=== PATIENT | male | born 1935 | race Caucasian/White ===

== ENCOUNTER 2020-03-09 14:39 | Inpatient (IN) | payer MEDICARE, BC ==
[~2020-03-09] VITALS: Ht 177.8 cm; Wt 83.9 kg
[2020-03-09] MEDS ORDERED: PEPCID AC20 MG PO (14:50)
[2020-03-09] MEDS ORDERED: BAYER CHEWABLE81 MG PO (14:50)
[2020-03-09] MEDS ORDERED: PLAVIX75 MG PO (14:50)
[2020-03-09] MEDS ORDERED: COZAAR50 MG PO (14:50)
[2020-03-09] MEDS ORDERED: NITROSTAT0.4 MG SL (14:51)
[2020-03-09] MEDS ORDERED: FLOMAX0.4 MG PO (14:51)
[2020-03-09] MEDS ORDERED: METOPROLOL TART50 MG PO (14:51)
[2020-03-09] MEDS ORDERED: METFORMIN HCL500 M1 PO (14:51)
[2020-03-09] MEDS ORDERED: RESTORIL15 MG PO (14:52)
[2020-03-09] MEDS ORDERED: COUMADIN4 MG PO (14:53)
[2020-03-09 15:17] LABS: BASOPHILS 0.3 % (0-2); EOSINOPHILS 0.8 % (0-7); HEMATOCRIT 31.5 % (42.0-54.0); HEMOGLOBIN 9.4 g/dL (13.5-17.5); IMMATURE GRANULOCYTES 0.3 % (0-5); LYMPHOCYTES 16.3 % (15-50); MCH 23.5 pg (26.0-34.0); MCHC 29.8 g/dL (31.0-37.0); MCV 78.8 fL (80.0-100.0); MEAN PLATELET VOLUME 9.5 fL (7.4-10.4); MONOCYTES 10.7 % (2-11); NEUTROPHILS 71.6 % (40-80); PLATELET COUNT 261 10x3/uL (130-400); RDW 16.1 % (11.5-14.5); WBC 6.6 10x3/uL (4.8-10.8)
[2020-03-09 15:25] LABS: APTT 35.4 SECONDS (22.8-39.4); INR 1.81 (0.85-1.17); PROTIME 20.7 SECONDS (11.6-15.0)
[2020-03-09 15:26] LABS: CALC OSMOLALITY 276 mosm/kg (275-300); CALCIUM 8.4 mg/dL (8.5-10.1); CARBON DIOXIDE 25.5 mmol/L (21.0-32.0); CHLORIDE - SERUM 104 mmol/L (98-107); CREATININE - SERUM 1.2 mg/dL (0.6-1.3); GLUCOSE 125 mg/dL (74-106); POTASSIUM - SERUM 4.3 mmol/L (3.5-5.1); SODIUM 137 mmol/L (136-145); UREA NITROGEN 18 mg/dL (7-18); eGFR NON AFRICAN AMERICAN 61 mL/min (90-120)
[2020-03-09 15:41] LABS: ALBUMIN 3.5 g/dL (3.4-5.0); ALKALINE PHOSPHATASE 58 U/L (30-120); ALT (SGPT) 28 U/L (10-68); BILIRUBIN - TOTAL 0.35 mg/dL (0.2-1.3); CKMB 3.1 U/L (0.0-3.6); CREATINE KINASE 80 UL (21-232)
[2020-03-09 15:43] LABS: TROPONIN-I < 0.017 ng/mL (0.000-0.060)
--- NOTE | 2020-03-09 16:02 | NUR ---
PT LAYING IN BED NO DISTRESS NOTED. RESPIRATIONS ARE EVEN AND UNLABORED. WILL CONTINUE TO MONITOR.
--- NOTE | 2020-03-09 16:30 | NUR ---
PT PROVIDED WITH SANDWICH TRAY AT THIS TIME.
[2020-03-09 17:15] VITALS: BP 166/78
[2020-03-09 18:18] LABS: CKMB 2.6 U/L (0.0-3.6); CREATINE KINASE 85 UL (21-232)
[2020-03-09 18:20] LABS: TROPONIN-I < 0.017 ng/mL (0.000-0.060)
[2020-03-09 20:00] VITALS: BP 116/59
--- NOTE | 2020-03-09 20:10 | NUR ---
PT TO ROOM 2121 VIA WHEELCHAIR ACCOMPANIED BY HOSPITAL STAFF.
--- NOTE | 2020-03-09 23:00 | NUR ---
PT DENIES ANY KIND OF PAIN, INCLUDING CHEST PAIN, DENIES BLURRY VISION, REPORTS PRESENTING TO ER FOR "OVER-MEDICATED ON CURRENT MEDICATIONS." ORTHOSTATIC VITALS: LYING 116/59, 68 HR; SITTING 148/60, 72 HR; STANDING 162/68, 81 HR.
[2020-03-10 01:25] LABS: CKMB 2.4 U/L (0.0-3.6); CREATINE KINASE 84 UL (21-232); TROPONIN-I 0.022 ng/mL (0.000-0.060)
--- NOTE | 2020-03-10 04:00 | NUR ---
ORTHOSTATIC VITALS: LYIN/64, 66 HR, 97% ON RA SITTIN/68, 81 HR, 97% ON RA STANDIN/72, 84 HR, 96% ON RA
[2020-03-10 05:20] VITALS: BP 116/59; BMI 26.6
[2020-03-10 06:58] LABS: ALBUMIN 3.4 g/dL (3.4-5.0); ALKALINE PHOSPHATASE 54 U/L (30-120); ALT (SGPT) 27 U/L (10-68); BILIRUBIN - TOTAL 0.42 mg/dL (0.2-1.3); CALC OSMOLALITY 276 mosm/kg (275-300); CALCIUM 8.3 mg/dL (8.5-10.1); CARBON DIOXIDE 29.8 mmol/L (21.0-32.0); CHLORIDE - SERUM 104 mmol/L (98-107); CKMB 2.5 U/L (0.0-3.6); CREATINE KINASE 80 UL (21-232); GLUCOSE 124 mg/dL (74-106); POTASSIUM - SERUM 3.9 mmol/L (3.5-5.1); PROTEIN - SERUM 6.9 g/dL (6.4-8.2); SODIUM 137 mmol/L (136-145); TROPONIN-I 0.017 ng/mL (0.000-0.060); UREA NITROGEN 18 mg/dL (7-18); eGFR NON AFRICAN AMERICAN 76 mL/min (90-120)
[2020-03-10 07:11] LABS: BASOPHILS 0.2 % (0-2); EOSINOPHILS 1.4 % (0-7); HEMATOCRIT 31.4 % (42.0-54.0); HEMOGLOBIN 9.4 g/dL (13.5-17.5); IMMATURE GRANULOCYTES 0.2 % (0-5); LYMPHOCYTES 19.3 % (15-50); MCH 23.6 pg (26.0-34.0); MCHC 29.9 g/dL (31.0-37.0); MCV 78.7 fL (80.0-100.0); MEAN PLATELET VOLUME 9.7 fL (7.4-10.4); MONOCYTES 10.9 % (2-11); PLATELET COUNT 267 10x3/uL (130-400); RBC 3.99 10x6/uL (4.20-6.10); RDW 16.1 % (11.5-14.5); WBC 6.4 10x3/uL (4.8-10.8)
--- NOTE | 2020-03-10 07:15 | NUR ---
RECEIVED PT IN BED AAOX4 RESP UNLABORED SKIN W/D COLOR WNL DENIES ANY NEEDS OR PAIN AT THIS TIME
[2020-03-10 09:32] VITALS: BP 176/68
--- NOTE | 2020-03-10 10:06 | NUR ---
PT REFUSES SCDs AT THHIS TIME
[2020-03-10 13:01] VITALS: Ht 177.8 cm; Wt 83.9 kg
[2020-03-10 13:40] VITALS: BP 189/80
--- NOTE | 2020-03-10 13:43 | NUR ---
Rehab Note- Acute Inpatient Rehab prescreen order received. The patient has a pending a PT Eval, will follow at this time for functional mobility. Thank you for this referral! Bertha Ha RN Clinical Liaison, [facility] Rehab
--- NOTE | 2020-03-10 19:45 | NUR ---
RECEIVED REPORT ON PATIENT. PATIENT UP, ALERT AND ORIENTED. 20 GUAGE IV IN RIGHT HAND. ASSESSED FOR INFILTRATION, BLOOD NOTED ON SKIN. IV WAS PATENT AND WAS NOT INFILTRATED. BREATH SOUNDS EQUAL BILATERALLY AND UNLABORED ON ROOM AIR.
[2020-03-10 21:32] VITALS: BP 161/70
[2020-03-10 21:35] LABS: BILIRUBIN NEGATIVE (NEGATIVE); GLUCOSE NEGATIVE (NEGATIVE); KETONE NEGATIVE (NEGATIVE); NITRITE NEGATIVE (NEGATIVE); SPECIFIC GRAVITY 1.015 (1.005-1.020); UROBILINOGEN NORMAL (NORMAL)
[2020-03-10 21:45] VITALS: BP 184/63
--- NOTE | 2020-03-10 22:00 | NUR ---
URINE AND STOOL SPECIMINE COLLECTED AND TAKEN TO LAB.
--- NOTE | 2020-03-11 02:36 | NUR ---
I have reviewed this patient and I concur with the Shift Assessment completed by the Licensed Practical Nurse today this shift.
[2020-03-11 04:00] VITALS: BP 129/66
[2020-03-11 06:02] LABS: BASOPHILS 0.3 % (0-2); EOSINOPHILS 1.6 % (0-7); HEMATOCRIT 33.4 % (42.0-54.0); HEMOGLOBIN 10.1 g/dL (13.5-17.5); IMMATURE GRANULOCYTES 0.3 % (0-5); LYMPHOCYTES 17.8 % (15-50); MCH 23.7 pg (26.0-34.0); MCHC 30.2 g/dL (31.0-37.0); MCV 78.2 fL (80.0-100.0); MEAN PLATELET VOLUME 9.5 fL (7.4-10.4); MONOCYTES 11.6 % (2-11); NEUTROPHILS 68.4 % (40-80); PLATELET COUNT 305 10x3/uL (130-400); RBC 4.27 10x6/uL (4.20-6.10); RDW 16.3 % (11.5-14.5); WBC 6.8 10x3/uL (4.8-10.8)
[2020-03-11 06:17] LABS: INR 1.52 (0.85-1.17); PROTIME 18.1 SECONDS (11.6-15.0)
[2020-03-11 06:33] LABS: % SATURATION 6 % (15-55); IRON 26 ug/dl (35-150); TOTAL IRON BIND CAPACITY 385 ug/dl (260-445); UNSAT IRON BIND CAPACITY 359 ug/dl (150-375)
[2020-03-11 06:40] LABS: ANION GAP 13.8 mmol/L (8-16); CALCIUM 8.9 mg/dL (8.5-10.1); CARBON DIOXIDE 25.3 mmol/L (21.0-32.0); CREATININE - SERUM 1.1 mg/dL (0.6-1.3); POTASSIUM - SERUM 4.1 mmol/L (3.5-5.1)
--- NOTE | 2020-03-11 07:00 | NUR ---
RECEIVED REPORT. ASSUMED CARE OF PATIENT. RESTING IN BED, EASILY AROUSED. BEDSIDE SHIFT REPORT COMPLETED, WHITE BOARD UPDATED. PATIENT MADE AWARE OF NPO STATUS UNTIL SEEN BY CARDIOLOGY. PATIENT DENIES ANY CHEST PAIN OR DISCOMFORT. NO DISTRESS. CALL LIGHT WITHIN REACH.
[2020-03-11 09:28] VITALS: BP 140/92
--- NOTE | 2020-03-11 10:37 | NUR ---
Rehab Note- REviewed medical record, PT Aidee stated that no skilled need for physical therapy. Thank you for this referral! Bertha Ha RN Clinical Liaison, [facility] Rehab
--- NOTE | 2020-03-11 11:19 | NUR ---
FSBS 194. 2 UNITS HUMULIN ADMINISTERED PER SLIDING SCALE.
[2020-03-11 12:09] VITALS: BP 148/60
[2020-03-11 15:35] VITALS: BP 142/61
--- NOTE | 2020-03-11 16:41 | NUR ---
FSBS 157. 2 UNITS HUMULIN ADMINISTERED PER SLIDING SCALE.
--- NOTE | 2020-03-11 19:45 | NUR ---
PATIENT IS RESTING COMFORTABLY IN BED. PATEINT IS ALERT AND ORIENTED. HE TOLD ME WHEN I WENT INTO ASSESS HIM, THAT HE WOULD REFUSE TO TAKE THE BETAPACE TONIGHT. HE SAID HE HAD A REACTION TO IT TODAY. HE SAID HE WOULD TALK TO THE CYBER OPERATOR IN THE MORNING.
[2020-03-11 22:26] VITALS: BP 151/56
[2020-03-12 01:47] VITALS: BP 145/54
--- NOTE | 2020-03-12 04:51 | NUR ---
PATIENT IS SLEEPING. HE REFUSED HIS BETAPACE. HE SAID HE WILL TALK TO THE SENSITIZED PAPER TESTER IN AM ABOUT BETAPACE.
[2020-03-12 06:50] LABS: BASOPHILS 0.4 % (0-2); EOSINOPHILS 2.6 % (0-7); HEMOGLOBIN 9.5 g/dL (13.5-17.5); IMMATURE GRANULOCYTES 0.2 % (0-5); MCH 23.9 pg (26.0-34.0); MCHC 30.6 g/dL (31.0-37.0); MCV 78.1 fL (80.0-100.0); MEAN PLATELET VOLUME 9.4 fL (7.4-10.4); MONOCYTES 12.4 % (2-11); NEUTROPHILS 59.4 % (40-80); PLATELET COUNT 263 10x3/uL (130-400); RBC 3.97 10x6/uL (4.20-6.10); RDW 16.2 % (11.5-14.5); WBC 5.4 10x3/uL (4.8-10.8)
[2020-03-12 06:54] VITALS: BP 125/67
[2020-03-12 07:02] LABS: CALC OSMOLALITY 277 mosm/kg (275-300); CALCIUM 8.3 mg/dL (8.5-10.1); CARBON DIOXIDE 25.9 mmol/L (21.0-32.0); CHLORIDE - SERUM 104 mmol/L (98-107); CREATININE - SERUM 0.9 mg/dL (0.6-1.3); GLUCOSE 120 mg/dL (74-106); POTASSIUM - SERUM 4.1 mmol/L (3.5-5.1); SODIUM 138 mmol/L (136-145); UREA NITROGEN 15 mg/dL (7-18); eGFR NON AFRICAN AMERICAN 85 mL/min (90-120)
[2020-03-12 07:39] LABS: INR 1.51 (0.85-1.17)
[2020-03-12 10:14] VITALS: BP 176/71
--- NOTE | 2020-03-12 12:04 | NUR ---
C/O BLUURED VISION AND ANXIETY. B/P 142/54. THINKS IT MIGHT HAVE BEEN THE BETAPACE OR RESTORIL ALEJANDRO TRINIDAD NOTIFIED.
[2020-03-12] MEDS ORDERED: RESTORIL15 MG PO (12:52)
--- NOTE | 2020-03-12 13:30 | NUR ---
Nutrition Follow-up: Good appetite. Denies N/V/C/D. Noted plans to d/c today. Diet: Cardiac PO intake: 100% x 4 meals Wt: 185# (03/10) Last BM: 03/11 Labs noted: Glu 120, Ca 8.3 Meds noted: Humulin, Coumadin, Pepcid, electrolyte protocol -Change to cardiac carb consistent diet. -RD following.
--- NOTE | 2020-03-12 14:40 | NUR ---
INSISTS ON SEEING DR. SUMMERS OR ALEJANDRO PRIOR TO DC. DR. SUMMERS NOTIFIED AND RETURNS TO ROOM AND AND ANSWERS ANY QUESTIONS HE HAS IN REGAURDS TO BLURRED VISION AND INTERMITTEN DIZZINESS.
--- NOTE | 2020-03-12 14:49 | MORECARE ---
CASE MANAGEMENT DISCHARGE SUMMARY PATIENT: ELIUD RIVERA UNIT: [id number] ADM DATE: 03/10/20 AGE: 84 : 36 SEX: M ROOM/BED: D.2121 AUTHOR: CISCO LEDEZMA PHYSICIAN: REFERRING PHYSICIAN: JOSSELYN ALEJANDRO MD DATE OF SERVICE: 03/12/20 Discharge Plan Patient Name: ELIUD RIVERA Facility: [facility]:[place] : 1935 Planned Disposition: Anticipated Discharge Date: Discharge Date: Expected LOS: Initial Reviewer: [email or web address] Initial Review Date: 03/09/2020 Generated: 03/12/20 3:48 pm DCPIA - Discharge Planning Initial Assessment Updated by [email or web address]: Radha Avalos on 03/12/20 2:45 pm * Is the patient Alert and Oriented? Yes * How many steps to enter\exit or inside your home? 0/0 * PCP JOCE * Pharmacy [facility] * Preadmission Environment Home Alone * ADLs Independent * Equipment Other * List name and contact numbers for known caregivers / representatives who currently or will assist patient after discharge: KENYON [phone] * Verbal permission to speak to the caregivers and representatives has been obtained from the patient. Yes * Community resources currently utilized None * Additional services required to return to the preadmission environment? Yes * Can the patient safely return to the preadmission environment? Yes * Has this patient been hospitalized within the prior 30 days at any hospital? Yes External Providers External Provider: [facility] Next Contact Date: Service Request Date: Service Type: Resolution: Reviewer: Comments: Patient Name: ELIUD RIVERA Page [phone] at 1449 All edits/amendments must be made on the electronic document DICTATION DATE: 03/12/201447 MEDICAL CARE ADMINISTRATOR: MARY 03/12/201447 RPT#: [id number] DC DATE: STATUS: ADM IN [facility] [address] [place] [address] END OF REPORT
--- NOTE | 2020-03-12 14:49 | EC ---
PATIENT:ELIUD RIVERA DATE OF SERVICE: 03/10/20 SEX: M MEDICAL RECORD: [id number] DATE OF : 37 LOCATION:D.M2 D.212 AGE OF PATIENT: 84 ADMISSION DATE: 03/10/20 REFERRING PHYSICIAN: INTERPRETING PHYSICIAN: MYAH MENDENHALL MD ECHOCARDIOGRAM REPORT ECHO CHARGES 4 ECHO COMPLETE Date: 03/10/20 CLINICAL DIAGNOSIS: DIZZINESS ECHOCARDIOGRAPHIC MEASUREMENTS (adult normal given) AC root (d.<3.7cm) 3.1 cm LV Septum d (<1.2 cm> 2.0 cm Valve Excursion 2.0 cm LV Septum (systole) 2.1 cm Left Atria (s.<4.0cm> 4.0 cm LVPW d(<1.2cm) 1.2 cm RV (d.<2.3cm) 3.0 cm LVPW (sytole) 1.7 cm LV diastole(<5.6CM) 4.9 cm MV E-F(>70mm/sec) cm LV systole 2.6 cm LVOT Diameter 1.8 cm MV exc.(>10mm) cm Est.ejection fraction (50-75%) % DOPPLER: LVIT cm/sec A 59 cm/sec E 83 cm/sec LA cm/sec RVSP 44.6 mmHg LVOT 79 cm/sec AOP1/2T m/s Asc. Ao 117 cm/sec RVOT 64 cm/sec RA cm/sec PA 96 cm/sec AV Gradient Peak 5.5 mmHg AV Mean 3.0 mmHg AV Area 1.8 cm MV Gradient Peak 3.0 mmHg MV Mean 1.2 mmHg MV Area cm COMMENTS: Door Repairer Bus: Carolina CLAROS Landscape Nurseryman: Alyse Mendenhall TAPE# PACS Pericardial Effusion N DATE OF SERVICE: PROCEDURE: Transthoracic echocardiogram. FINDINGS: 1. The left ventricle shows left ventricular hypertrophy with ejection fraction of 50% to 55%. 2. Left atrium is normal size, shape, structure, and function. 3. Aortic valve has a thickened area on the noncoronary cusp, it is difficult to visualize, does not appear to be associated with significant stenosis or ECHOCARDIOGRAM REPORT [id number] ELIUD RIVERA regurgitation and there is still good mobility in that area. 4. Mitral valve has mild mitral regurgitation, normal structure. 5. Tricuspid valve has [id number] tricuspid regurgitation, normal structure with RVSP of 44.6 mmHg. 6. Pericardium has no significant effusion. 7. Right ventricle has mild enlargement with normal function. 8. The right atrium is normal size, shape, structure, and function. 9. The pulmonic valve appears to be grossly normal with trace pulmonic insufficiency. 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 TRANSINT:[id number] Voice Confirmation ID: [id number] DOCUMENT ID: [id number] MYAH MENDENHALL MD at 1449 CC: [id number] DICTATION DATE: 03/11/20 1042 PLYCOR OPERATOR: 03/11/20 1118 ADM IN [facility] [address] [place] [address]
--- NOTE | 2020-03-12 15:00 | MORECARE ---
CASE MANAGEMENT DISCHARGE SUMMARY PATIENT: ELIUD RIVERA UNIT: [id number] ADM DATE: 03/10/20 AGE: 84 : 36 SEX: M ROOM/BED: D.0324 AUTHOR: CISCO LEDEZMA PHYSICIAN: REFERRING PHYSICIAN: JOSSELYN ALEJANDRO MD DATE OF SERVICE: 03/12/20 Discharge Plan Patient Name: ELIUD RIVERA Facility: [facility]:[place] : 1935 Planned Disposition: Anticipated Discharge Date: Discharge Date: Expected LOS: Initial Reviewer: [email or web address] Initial Review Date: 03/09/2020 Generated: 03/12/20 4:00 pm Comments DCP- Discharge Planning Updated by [email or web address]: Radha Avalos on 03/12/20 1:[address] Patient Name: ELIUD RIVERA Admission Status: ER Accout number: [id number] Admission Date: 03-10-2020 : 1935 Admission Diagnosis:CHEST PAIN, UNSPECIFIED Attending: JOSSELYN ALEJANDRO Current LOS: 2 Anticipated DC Date: Planned Disposition: Primary Insurance: MEDICARE A & B Discharge Planning Comments: CM met with patient to complete initial dc planning assessment. CM educated patient on the CM role and verbal consent given by patient to complete assessment. CM verified patient's address, phone number, and emergency contact phone numbers. Patient lives at home alone and states he is independent with his needs. At discharge patient plans to return home and feels this is a safe discharge. CM discussed availability of home health, rehab services, and medical equipment. Patient states he was just released from [facility] rehab, because it was too cold and they would not listen to him. States he does not have any difficulty walking but is dizzy. States [facility] home health will not see him because he gets around to well. Pt asked if a HH company could help his with his dizziness. CM discussed the safe strides program with [facility], and other HH facilities. KAROLINA signed for [facility]. Patient denies other known discharge needs at this time. Transportation provider at discharge will be his brother Julio at [phone]. DC IMM delivered, explained, signed by the patient, and placed in chart. Signed form also left with the patient. CM will continue to follow and will assist as needed with dc plans/needs. Cartoon Animator: Radha Avalos DCPIA - Discharge Planning Initial Assessment Updated by [email or web address]: Radha Avalos on 03/12/20 2:45 pm * Is the patient Alert and Oriented? Yes * How many steps to enter\exit or inside your home? 0/0 * PCP JOCE * Pharm[facility] * Preadmission Environment Home Alone * ADLs Independent * Equipment Other * List name and contact numbers for known caregivers / representatives who currently or will assist patient after discharge: JULIO [phone] * Verbal permission to speak to the caregivers and representatives has been obtained from the patient. Yes * Community resources currently utilized None * Additional services required to return to the preadmission environment? Yes * Can the patient safely return to the preadmission environment? Yes * Has this patient been hospitalized within the prior 30 days at any hospital? Yes Coverage Notice Reviewer: [id number] - Radha Avalos Notice Issued Date-Time: 03/12/2020 14:00 Notice Type: Patient Choice Letter Notice Delivered To: Patient Relationship to Patient: Dragline Engineer Name: Delivery Method: - Mindi Days: Prior Verbal Notification: Recipient Understood Notice: Recipient Signature: Med Rec Note Co-signed by Attending: Coverage Notice Comment: Last DP export: 03/12/20 1:49 p Patient Name: ELIUD RIVERA Page [id number] at 1500 All edits/amendments must be made on the electronic document DICTATION DATE: 03/12/20 1500 MERCHANDISE DELIVERER: MARY 03/12/20 1500 RPT#: [id number] DC DATE: STATUS: ADM IN [facility] [address] [place] [address] END OF REPORT
--- NOTE | 2020-03-12 15:04 | NUR ---
IV AND TELEMETRY DCD. DC PLANS GIVEN WITH HOME HEALTH. UNDERSTANDING VOICED. ESCORTED TO CAR BY W/C.
--- NOTE | 2020-03-13 09:34 | MORECARE ---
CASE MANAGEMENT DISCHARGE SUMMARY PATIENT: ELIUD RIVERA UNIT: [id number] ADM DATE: 03/10/20 AGE: 84 : 36 SEX: M ROOM/BED: D.5535 AUTHOR: CISCO LEDEZMA PHYSICIAN: REFERRING PHYSICIAN: JOSSELYN ALEJANDRO MD DATE OF SERVICE: 03/13/20 Discharge Plan Patient Name: ELIUD RIVERA Facility: [facility]:[place] : 1935 Planned Disposition: Anticipated Discharge Date: Discharge Date: 03/12/2020 Expected LOS: Initial Reviewer: [email or web address] Initial Review Date: 03/09/2020 Generated: 03/13/20 10:34 am Comments DCP- Discharge Planning Updated by [email or web address]: Radha Avalos on 03/12/20 1:[address] Patient Name: ELIUD RIVERA Admission Status: ER Accout number: [id number] Admission Date: 03-10-2020 : 1935 Admission Diagnosis:CHEST PAIN, UNSPECIFIED Attending: JOSSELYN ALEJANDRO Current LOS: 2 Anticipated DC Date: Planned Disposition: Primary Insurance: MEDICARE A & B Discharge Planning Comments: CM met with patient to complete initial dc planning assessment. CM educated patient on the CM role and verbal consent given by patient to complete assessment. CM verified patient's address, phone number, and emergency contact phone numbers. Patient lives at home alone and states he is independent with his needs. At discharge patient plans to return home and feels this is a safe discharge. CM discussed availability of home health, rehab services, and medical equipment. Patient states he was just released from [facility] rehab, because it was too cold and they would not listen to him. States he does not have any difficulty walking but is dizzy. States [facility] home health will not see him because he gets around to well. Pt asked if a HH company could help his with his dizziness. CM discussed the safe strides program with [facility], and other HH facilities. BRENT signed for [facility]. Patient denies other known discharge needs at this time. Transportation provider at discharge will be his brother Julio at [phone]. DC IMM delivered, explained, signed by the patient, and placed in chart. Signed form also left with the patient. CM will continue to follow and will assist as needed with dc plans/needs. Launch Steward: Radha Avalos DCPIA - Discharge Planning Initial Assessment Updated by [email or web address]: Radha Avalos on 03/12/20 2:45 pm * Is the patient Alert and Oriented? Yes * How many steps to enter\exit or inside your home? 0/0 * PCP JOCE * Pharmacy [facility] * Preadmission Environment Home Alone * ADLs Independent * Equipment Other * List name and contact numbers for known caregivers / representatives who currently or will assist patient after discharge: JULIO [phone] * Verbal permission to speak to the caregivers and representatives has been obtained from the patient. Yes * Community resources currently utilized None * Additional services required to return to the preadmission environment? Yes * Can the patient safely return to the preadmission environment? Yes * Has this patient been hospitalized within the prior 30 days at any hospital? Yes Coverage Notice Reviewer: [id number] - Radha Avalos Notice Issued Date-Time: 03/12/2020 14:00 Notice Type: Patient Choice Letter Notice Delivered To: Patient Relationship to Patient: Radio Division Captain Name: Delivery Method: HAND - Hand Delivered Mindi Days: Prior Verbal Notification: Recipient Understood Notice: Yes Recipient Signature: Yes Med Rec Note Co-signed by Attending: Coverage Notice Comment: brent signed for [facility] for [facility] Reviewer: [email or web address] Rosalinda Avalos Notice Issued Date-Time: 03/12/2020 14:00 Notice Type: IM Discharge Notice Notice Delivered To: Patient Relationship to Patient: Radio Division Captain Name: Delivery Method: MAIL - Mail Mindi Days: Prior Verbal Notification: Recipient Understood Notice: Yes Recipient Signature: Yes Med Rec Note Co-signed by Attending: Coverage Notice Comment: DC IMM delivered, explained, signed by the patient, and placed in chart. Signed form also left with the patient. Last DP export: 03/12/20 2:00 p Patient Name: ELIUD RIVERA Page [phone] at 0934 All edits/amendments must be made on the electronic document DICTATION DATE: 03/13/20933 SHERIFF DETECTIVE: MARY 03/13/20933 RPT#: [id number] DC DATE:03/12/20 STATUS: DIS IN [facility] [address] [facility] [place] [address] END OF REPORT
--- NOTE | 2020-03-13 14:52 | CN ---
PATIENT NAME:MICHAEL GUZMAN MEDICAL RECORD: [id number] : [birth year] LOCATION:D.M2 D.2121 ADMIT DATE: 03/10/20 ACCOUNT: [id number] CONSULTING PHYSICIAN: LISETTE LUND MD REFERRING PHYSICIAN: JOSSELYN ALEJANDRO MD DATE OF CONSULTATION: 03/11/2020 HISTORY OF PRESENT ILLNESS: Michael Guzman is an 84-year-old gentleman with a history of coronary artery disease, status post PTCA and stenting as well as atrial fibrillation, on Coumadin therapy, admitted with generalized weakness and fatigue. He has a combination of stents, radiation therapy for prostate cancer, really overall steady slow downward course. He convinced this maybe secondary to some of his medications, although certainly given age of 84, procedures certainly prolonged recovery time. No recent angina. We are asked to see him concerning his cardiovascular status. PAST MEDICAL HISTORY: Includes; 1. History of hypertension. 2. Hyperlipidemia. 3. Prostate carcinoma. 4. Atrial fibrillation. 5. Coronary artery disease as described above. 6. Diabetes mellitus. MEDICATIONS: Include metformin 500 p.o. b.i.d., Pepcid 20 before meals and at bedtime, aspirin 81 every day, Restoril 15 at bedtime, metoprolol 50 b.i.d., losartan 50 every day, warfarin per scale, Plavix 75 every day. ALLERGIES: STEVE, SULFA, SIMVASTATIN, AMIODARONE, CARDURA, ATORVASTATIN. SOCIAL HISTORY: Lives by himself currently with home health, nonsmoker, nondrinker. Some outpatient PT. REVIEW OF SYSTEMS: The patient reports easy bruising but reports no swollen glands. The patient reports no fever, no night sweats, no significant weight gain, no significant weight loss. No significant exercise tolerance. The patient reports no dry eyes, no irritation, no vision change. Patient reports no difficulty hearing and no ear pain. Patient reports no frequent nose bleeds or nose and sinus problems. Patient reports on arm pain on exertion. No shortness of breath while lying down. No history of heart murmur. Patient reports no cough, no wheezing or coughing up blood. Patient reports no abdominal pain, no vomiting. Normal appetite. No diarrhea and not vomiting blood. No nausea and no constipation. Patient reports no incontinence. No difficulty urinating. No hematuria. No increased frequency. Patient reports no muscle aches. No weakness, no arthralgias, no back pain. No swelling of the extremities. Patient reports no abnormal mole, no jaundice, no rashes. Reports no loss of consciousness. No weakness and no numbness. No seizures, dizziness, or headaches. The patient reports no depression, no sleep disturbance, feeling safe in a relationship and no alcohol abuse. Patient reports on fatigue. Reports no runny nose or sinus pressure. No itching, no hives, and no frequent sneezing. PHYSICAL EXAMINATION: GENERAL: Elderly, in no acute distress, appears stated age. VITAL SIGNS: Blood pressure 129/66, pulse 63 and regular. CONSULT REPORT [id number] MICHAEL GUZMAN HEENT: Normocephalic, atraumatic. NECK: No JVD or bruit. HEART: Regular, II/ systolic ejection murmur. LUNGS: Fairly good air excursion. ABDOMEN: Soft, nontender. EXTREMITIES: Pulses 2+ with no edema. IMPRESSION: Coronary artery disease, diabetes mellitus, status post recent intervention. Given overall physical status, remained in sinus, we will discontinue warfarin at this point in time in order to simplify medications. We will use sotalol for both combination of antihypertensive and antiarrhythmic, stop Coumadin. Continue Plavix for at least 6 months given recent stenting, might benefit from a cardiac rehabilitation or even inpatient rehab at this point. Further recommendations based on the above. TRANSINT:[id number] Voice Confirmation ID: [id number] DOCUMENT ID: [id number] LISETTE LUND MD at 1452 CC: [id number] DICTATION DATE: 03/11/20 0846 BACK TENDER CYLINDER: 03/11/20 1007 DIS IN 03/12/20 [facility] [address] [place] [address]
== END 2020-03-12 15:05 | disposition home health service (06) | DRG 948 ==
LOC: D.ER 14:39 → D.M2 17:52 → OBSVTIME 17:52 → D.M2 03-10 17:56
PROVIDERS: Family Medicine; ADMIT Family Medicine; ATTEND Family Medicine
DX: R53.83 Other fatigue (principal); I10 Essential (primary) hypertension; I25.10 Atherosclerotic heart disease of native coronary artery without angina pectoris; J44.9 Chronic obstructive pulmonary disease, unspecified; I48.91 Unspecified atrial fibrillation; Z86.73 Personal history of transient ischemic attack (TIA), and cerebral infarction without residual deficits; D50.9 Iron deficiency anemia, unspecified; R07.9 Chest pain, unspecified

== ENCOUNTER 2020-03-20 15:41 | Inpatient (IN) | payer MEDICARE, BC ==
[~2020-03-20] VITALS: Ht 177.8 cm; Wt 84.4 kg
[~2020-03-20 15:41] MED LIST: BAYER CHEWABLE81 MG PO; COUMADIN4 MG PO; COZAAR50 MG PO; FLOMAX0.4 MG PO; METFORMIN HCL500 M1 PO; METOPROLOL TART50 MG PO; NITROSTAT0.4 MG SL; PEPCID AC20 MG PO; PLAVIX75 MG PO; RESTORIL15 MG PO
[2020-03-20 17:03] LABS: BASOPHILS 0.1 % (0-2); EOSINOPHILS 0.9 % (0-7); HEMATOCRIT 32.9 % (42.0-54.0); HEMOGLOBIN 10.1 g/dL (13.5-17.5); IMMATURE GRANULOCYTES 0.1 % (0-5); LYMPHOCYTES 14.3 % (15-50); MCHC 30.7 g/dL (31.0-37.0); MCV 78.3 fL (80.0-100.0); MEAN PLATELET VOLUME 9.2 fL (7.4-10.4); MONOCYTES 8.3 % (2-11); NEUTROPHILS 76.3 % (40-80); PLATELET COUNT 282 10x3/uL (130-400); RDW 16.9 % (11.5-14.5); WBC 7.9 10x3/uL (4.8-10.8)
[2020-03-20 17:13] LABS: APTT 31.8 SECONDS (22.8-39.4); INR 1.34 (0.85-1.17); PROTIME 16.4 SECONDS (11.6-15.0)
[2020-03-20 17:14] LABS: CALC OSMOLALITY 277 mosm/kg (275-300); CALCIUM 8.8 mg/dL (8.5-10.1); CARBON DIOXIDE 22.8 mmol/L (21.0-32.0); CHLORIDE - SERUM 103 mmol/L (98-107); CREATININE - SERUM 1.2 mg/dL (0.6-1.3); SODIUM 136 mmol/L (136-145); UREA NITROGEN 17 mg/dL (7-18); eGFR NON AFRICAN AMERICAN 61 mL/min (90-120)
[2020-03-20 17:16] LABS: GLUCOSE 172 mg/dL (74-106)
--- NOTE | 2020-03-20 17:23 | NUR ---
URINE SENT TO THE LAB.
[2020-03-20 17:24] VITALS: BP 158/76
[2020-03-20 17:32] LABS: ALBUMIN 3.5 g/dL (3.4-5.0); ALKALINE PHOSPHATASE 63 U/L (30-120); ALT (SGPT) 32 U/L (10-68); BILIRUBIN - TOTAL 0.32 mg/dL (0.2-1.3); CKMB 3.1 U/L (0.0-3.6); CREATINE KINASE 73 UL (21-232); PRO BNP 334 pg/mL (0-450); PROTEIN - SERUM 7.3 g/dL (6.4-8.2)
[2020-03-20 17:37] LABS: BILIRUBIN NEGATIVE (NEGATIVE); GLUCOSE NEGATIVE (NEGATIVE); KETONE NEGATIVE (NEGATIVE); NITRITE NEGATIVE (NEGATIVE); UROBILINOGEN NORMAL (NORMAL)
[2020-03-20 17:40] LABS: TROPONIN-I < 0.017 ng/mL (0.000-0.060)
--- NOTE | 2020-03-20 19:05 | NUR ---
REPORT TO CITLALY LEVY
--- NOTE | 2020-03-20 20:00 | NUR ---
PATIENT ARRIVED ON THE FLOOR VIA BED BY HOSPITAL STAFF FROM ER. NO S/S OF ACUTE DISTRESS. NO C/O AT THIS TIME. PATIENT SEEMED TO HAVE A LITTLE TROUBLE WHEN FIRST STANDING FROM THE BED. PAITENT HAS LEFT FOREARM IV, NORMAL SALINE @ 100 ML/HR. IV IS PATNET WITHOUT REDNESS, SWELLING, OR TENDERNESS. CALL LIGHT WIHTIN REACH. WILL CONTINUE TO MONITOR.
[2020-03-20 22:30] VITALS: BP 130/76; BMI 26.7
[2020-03-21] VITALS: BP 130/76
--- NOTE | 2020-03-21 01:10 | NUR ---
I have reviewed this patient and I concur with the Shift Assessment completed by the Licensed Practical Nurse today this shift.
[2020-03-21 04:00] VITALS: BP 135/55
[2020-03-21 05:31] LABS: BASOPHILS 0.4 % (0-2); EOSINOPHILS 1.9 % (0-7); HEMATOCRIT 30.1 % (42.0-54.0); HEMOGLOBIN 8.8 g/dL (13.5-17.5); IMMATURE GRANULOCYTES 0.7 % (0-5); LYMPHOCYTES 25.5 % (15-50); MCHC 29.2 g/dL (31.0-37.0); MCV 78.6 fL (80.0-100.0); MEAN PLATELET VOLUME 9.2 fL (7.4-10.4); MONOCYTES 11.4 % (2-11); NEUTROPHILS 60.1 % (40-80); PLATELET COUNT 231 10x3/uL (130-400); RBC 3.83 10x6/uL (4.20-6.10); RDW 17.1 % (11.5-14.5)
[2020-03-21 05:48] LABS: WBC 5.7 10x3/uL (4.8-10.8)
[2020-03-21 05:55] LABS: % SATURATION 8 % (15-55); IRON 28 ug/dl (35-150); TOTAL IRON BIND CAPACITY 318 ug/dl (260-445); UNSAT IRON BIND CAPACITY 290 ug/dl (150-375)
[2020-03-21 06:28] LABS: ALBUMIN 3.1 g/dL (3.4-5.0); ALKALINE PHOSPHATASE 51 U/L (30-120); ALT (SGPT) 28 U/L (10-68); BILIRUBIN - TOTAL 0.29 mg/dL (0.2-1.3); CALC OSMOLALITY 280 mosm/kg (275-300); CARBON DIOXIDE 25.7 mmol/L (21.0-32.0); CHLORIDE - SERUM 107 mmol/L (98-107); CREATININE - SERUM 0.9 mg/dL (0.6-1.3); FERRITIN 36 ng/mL (3-244); GLUCOSE 116 mg/dL (74-106); PHOSPHOROUS 3.4 mg/dL (2.5-4.9); PROTEIN - SERUM 6.3 g/dL (6.4-8.2); SODIUM 140 mmol/L (136-145); UREA NITROGEN 16 mg/dL (7-18); eGFR NON AFRICAN AMERICAN 85 mL/min (90-120)
--- NOTE | 2020-03-21 07:00 | NUR ---
ALERT AND ORIENTED. LUNGS CLEAR BILATERALLY. HEART SOUNDS S1 AND S2 HEARD IN ALL FIELD.S BOWEL SOUNDS ACTIVE X 4. IV TO RFA PATENT WITHOUT REDNESS. BED ALARM REFUSAL SIGNED AND ON CHART. DENIES NEEDS. CALL OBANDO AND PERSONAL ITEMS IN REACH. WILL CONTINUE TO MONITOR.
[2020-03-21 11:05] VITALS: BP 154/65
[2020-03-21 13:31] VITALS: BP 137/49
[2020-03-21 13:46] VITALS: Ht 177.8 cm; Wt 84.4 kg
[2020-03-21 17:31] VITALS: BP 111/57
[2020-03-21 20:00] VITALS: BP 108/65
--- NOTE | 2020-03-22 02:32 | NUR ---
I have reviewed this patient and I concur with the Shift Assessment completed by the Licensed Practical Nurse today this shift.
[2020-03-22 04:00] VITALS: BP 145/56
[2020-03-22 06:36] LABS: BASOPHILS 0.4 % (0-2); EOSINOPHILS 2.7 % (0-7); HEMATOCRIT 30.6 % (42.0-54.0); HEMOGLOBIN 9.1 g/dL (13.5-17.5); IMMATURE GRANULOCYTES 0.5 % (0-5); LYMPHOCYTES 21.4 % (15-50); MCH 23.2 pg (26.0-34.0); MCHC 29.7 g/dL (31.0-37.0); MCV 78.1 fL (80.0-100.0); MONOCYTES 10.3 % (2-11); NEUTROPHILS 64.7 % (40-80); PLATELET COUNT 250 10x3/uL (130-400); RBC 3.92 10x6/uL (4.20-6.10); RDW 17.2 % (11.5-14.5); WBC 5.5 10x3/uL (4.8-10.8)
[2020-03-22 07:06] LABS: CALC OSMOLALITY 279 mosm/kg (275-300); CALCIUM 8.6 mg/dL (8.5-10.1); CARBON DIOXIDE 26.2 mmol/L (21.0-32.0); CHLORIDE - SERUM 104 mmol/L (98-107); GLUCOSE 123 mg/dL (74-106); PHOSPHOROUS 3.4 mg/dL (2.5-4.9); SODIUM 139 mmol/L (136-145); UREA NITROGEN 14 mg/dL (7-18); eGFR NON AFRICAN AMERICAN 76 mL/min (90-120)
[2020-03-22 09:42] VITALS: BP 124/76
--- NOTE | 2020-03-22 11:27 | NUR ---
PT ALERT X 4. BREATH SOUNDS CLEAR BILAT. IV TO RIGHT FOREARM, SALINE LOCKED. TELEMETRY IN PLACE. BED LOW, CALL LIGHT IN REACH. NO OTHER NEEDS AT THIS TIME.
[2020-03-22 12:52] VITALS: BP 149/91
[2020-03-22] MEDS ORDERED: COUMADIN1 MG PO (15:35)
[2020-03-22] MEDS ORDERED: MULTAQ400 MG PO (15:36)
--- NOTE | 2020-03-22 16:35 | NUR ---
CALLED [facility] AND ADVISED THAT COUMADIN RX IS 2 MG/DAILY. SPOKE WITH DAVE, PHARMACIST.
[2020-03-22] MEDS ORDERED: LUNESTA2 M1 PO (16:42)
[2020-03-22] MEDS ORDERED: COUMADIN2 MG PO (16:43)
--- NOTE | 2020-03-22 16:54 | NUR ---
PAGED DR LUND x 2 WITH NO RESPONSE. BRANDON MONTAÑO APN, ADVISED OF NO RESPONSE. WILL INSTRUCT PT TO CONTACT OFFICE TUESDAY.
--- NOTE | 2020-03-22 17:47 | NUR ---
DISCHARGE PAPERWORK SIGNED, ALL QUESTIONS ANSWERED. IV TO LEFT FOREARM DC'D, TIP INTACT. ESCORTED OUT VIA WHEELCHAIR.
== END 2020-03-22 17:49 | disposition home or self-care (01) | DRG 149 ==
LOC: D.ER 15:41 → OBSVTIME 18:40 → D.MS 18:40
PROVIDERS: Family Medicine; ADMIT Family Medicine; ATTEND Family Medicine
DX: R42 Dizziness and giddiness (principal); I48.20 Chronic atrial fibrillation, unspecified; I50.20 Unspecified systolic (congestive) heart failure; Z79.01 Long term (current) use of anticoagulants; I11.0 Hypertensive heart disease with heart failure; Z95.0 Presence of cardiac pacemaker; J44.9 Chronic obstructive pulmonary disease, unspecified; E11.9 Type 2 diabetes mellitus without complications; I25.10 Atherosclerotic heart disease of native coronary artery without angina pectoris; Z85.46 Personal history of malignant neoplasm of prostate; Z86.73 Personal history of transient ischemic attack (TIA), and cerebral infarction without residual deficits; D50.9 Iron deficiency anemia, unspecified

== ENCOUNTER 2020-03-25 10:51 | Inpatient (IN) | payer MEDICARE, BC ==
[~2020-03-25] VITALS: Ht 177.8 cm; Wt 90.7 kg
--- NOTE | ~2020-03-25 | HEMODYNAMI ---
PATIENT:ELIUD RIVERA MEDICAL RECORD: [id number] : 37 [facility] [id number] ADMISSION DATE: 03/25/20 Generatedon:03/26/202011:45 Patient name: ELIUD RIVERA Patient #: [id number] : 1935 Date of study: 03/26/2020 Page: Of Hemodynamic Procedure Report Patient Data Patient Demographics Procedure consent was obtained First Name: ELIUD Gender: Male Last Name: NICOLE : 1935 Middle Initial: PATRIA Age: 84 year(s) Patient #: [id number] Race: SSN: [id number] Additional ID: [id number] Contact details [address]: [address] [place] [address] [address] State: [place] City: [place] Zip code: [address] Past Medical History Allergies Allergen Reaction Date Comments Reported Other allergy 03/26/2020 STEVE Inhibitors, Sulfa, simvastatin Admission Admission Data Admission Date: 03/25/2020 Admission Time: 12:33 Admit Source: Emergency Insurance Payor: Medicare department [facility] #: [id number] Room #: [facility] Lab Results Lab Result Date: 03/26/2020 Lab Result Time: 6:16 Biochemistry Name Units Result Min Max BUN mg/dl 14 --(--*-)-- 7 18 Creatinine mg/dl 1.1 --(--*-)-- 0.6 1.3 Creatinine l 152 --(--*-)-- 21 215 Kinase eGFR ml/min 67.80485 *-(----)-- 90 120 NONAFRICAN Troponin l ng/ml 2.418 --(----)-* 0 0.06 CBC Name Units Result Min Max Hematocrit % 29.1 *-(----)-- 42 54 Hemoglobin g/dl 8.6 *-(----)-- 13.5 17.5 Procedure Procedure Types Cath Procedure Diagnostic Procedure [facility] w/Coronaries w/Grafts Procedure Description Procedure Date Procedure Date: 03/26/2020 Procedure Start Time: 11:29 Procedure End Time: 11:40 Procedure Staff Name Function Jarocho Aragon MD Performing Physician Haim Desai RT Monitor Staci Wood RT Scrub Isabel Leary RN Nurse Procedure Data Cath Procedure Fluoroscopy Diagnostic fluoroscopy Total fluoroscopy Time: 2.1 time: 2.1 min min Diagnostic fluoroscopy Total fluoroscopy dose: 461 dose: 461 mGy mGy Contrast Material Contrast Material Type Amount (ml) Isovue 300 74 Entry Location Entry Primary Successful Side Size Upsize Upsize Entry Closure Succes sful Closure Location (Fr) 1 (Fr) 2 (Fr) Remarks Device Remarks Femoral Right 5 Fr Exoseal artery Estimated blood loss: 5 ml Diagnostic catheters Device Type Used For End Catheter Placement MULTIPACK JL 4.0 5Fr Procedure catheter MULTIPACK 3DRC 5Fr Procedure catheter MULTIPACK Pigtail 5 Fr Procedure catheter Procedure Complications No complications Procedure Medications Medication Administration Route Dosage Oxygen etCO2 Nasal cannula 2 l/min Lidocaine 2% added to field 20 Heparin Flush Bag added to field 2 bags (1000units/500ml NS) 0.9% NaCl 100 ml/hr Versed I.V. 2 mg Fentanyl I.V. 50 mcg Fentanyl I.V. 50 mcg Lopressor I.V. 5 mg Versed I.V. 1 mg Hemodynamics Rest HGB: 8.6 (g/dl) Heart Rate: 87 (bpm) Pressure Samples Time Site Value (mmHg) Purpose Heart Use Rate(bpm) 11:37 LV 154/7,12 Snapshot 71 11:37 AO 156/67(101) Pullback 73 11:37 LV 153/13,14 Pullback 73 Gradients Valve Time Site 1 Site 2 Mean SEP/DFP Peak To Heart Use (mmHg) (sec/min) Peak Rate (mmHg) (bpm) Aortic 11:37 LV AO 0 15 0 73 153/13,14 156/67(101) Calculations Valve P-P Mean Valve Index Valve Source Name Gradient Area Flow (cm2) Aortic 0 0 0 0 Snapshots Pre Cath Intra NCS Post Cath Vital Signs Time Heart Resp SPO2 etCO2 NIBP (mmHg) Rhythm Pain Sedation Rate (ipm) (%) (mmHg) Status Level (bpm) 11:16:26 96 14 98 0 183/104(134) NSR 0 (11) 10(A) , No pain 11:23:55 88 20 96 30.8 162/86(120) NSR 0 (11) 10(A) , No pain 11:28:17 87 17 96 30 165/75(124) NSR 0 (11) 10(A) , No pain 11:32:37 98 15 98 23.3 163/94(115) NSR 0 (11) 10(A) , No pain 11:36:57 71 15 98 30.1 154/70(102) NSR 0 (11) 10(A) , No pain Medications Time Medication Route Dose Verified Delivered Reason Notes Eff ectiveness by by 11:22:24 Oxygen etCO2 2 Jarocho Hugoie used for Nasal l/min [facility] Bradley Leary RN procedure cannula 11:22:31 Lidocaine 2% added 20ml Jarocho Jarocho for local to vial [facility] anesthetic field MD SWEET 11:22:37 Heparin Flush added 2 Jarocho Jarocho used for Bag to bags [facility] procedure (1000units/500ml field MD SWEET NS) 11:22:48 0.9% NaCl 100 Jarocho Ariasie Per ml/hr [facility] Leary RN physician 11:26:10 Fentanyl I.V. 50 Jarocho Ariasie for mcg [facility] Bradley Leary RN sedation 11:26:14 Versed I.V. 2 mg [address] for [facility] Bradley Leary RN sedation 11:31:09 Fentanyl I.V. 50 Jarocho Ariasie for mcg [facility] Bradley Leary RN sedation 11:31:31 Versed I.V. 1 mg [address] for [facility] Bradley Leary RN sedation 11:34:21 Lopressor I.V. 5 mg [address] Per [facility] Bradley cox MD Procedure Log Time Note 10:57:21 Informed consent obtained and on chart 11:00:33 Isabel Leary RN sent for patient. Start room use. 11:07:01 Admit Source: Emergency department 11:07:12 Insurance Payor : Medicare 11:09:55 Lab Result : Creatinine 1.1 mg/dl 11:09:55 Lab Result : BUN 14 mg/dl 11:09:55 Lab Result : Hemoglobin 8.6 g/dl 11:09:55 Lab Result : eGFR NONAFRICAN 67.46771 ml/min 11:09:55 Lab Result : Creatinine Kinase 152 l 11::55 Lab Result : Troponin l 2.418 ng/ml 11::55 Lab Result : Hematocrit 29.1 % 11:10:14 ACC Patient presents with Non-STEMI CCS Anginal Class 3--Marked limitation of physical activity, angina occurs with ordinary activity.. 11:10:18 Procedure Status Urgent Heart Cath (IP). 11:10:28 ACCPatient has been prescribed/administered the following anti-anginal medication within the last 2 weeks: ARB 11:10:39 Time tracking: Regular hours (M-F 7:00 - 5:00) 11:10:42 Plan of Care:Hemodynamics will remain stable., Cardiac rhythm will remain stable., Comfort level will be maintained., Respiratory function will remain adequate., Patient/ family verbilizes understanding of procedure., Procedure tolerated without complication., Recovers from procedure without complications.. 11:10:46 Patient received from Med II to CCL 1 Alert and oriented. Tansferred to table in Supine position. 11:10:51 Warm blankets applied, and morris hugger turned on for patient comfort. 11:10:51 Correct patient and procedure confirmed by team. 11:10:52 ECG and BP/O2 sat monitors applied to patient. 11:10:56 H&P Date Dictated: 03/25/2020 Within 30 days and on chart.. 11:10:58 Pre-procedure instructions explained to patient. 11:10:58 Pre-op teaching completed and patient verbalized understanding. 11:11:02 Family unavailable. 11:11:04 Patient NPO since Midnight. 11:11:23 Patient allergic to Other allergyACE Inhibitors, Sulfa, simvastatin 11:22:24 Oxygen 2 l/min etCO2 Nasal cannula was administered by Isabel Leary RN; used for procedure; Verbal order read back and verified. 11:22:31 Lidocaine 2% 20ml vial added to field was administered by Jarocho Aragon MD; for local anesthetic; Verbal order read back and verified. 11:22:37 Heparin Flush Bag (1000units/500ml NS) 2 bags added to field was administered by Jarocho Aragon MD; used for procedure; Verbal order read back and verified. 11:22:41 Vital chart was started 11:22:48 0.9% NaCl 100 ml/hr was administered by Isabel Leary RN; Per physician; Verbal order read back and verified. 11:22:49 Baseline sample Acquired. 11:22:50 Baseline sample Acquired. 11::55 Rhythm: sinus rhythm 11:22:57 Full Disclosure recording started 11:23:00 Is the patient allergic to Iodine/contrast media? No. 11:23:02 Is patient on blood thinner?No 11:23:04 Patient diabetic? Yes. 11:23:05 If diabetic: On Metformin? Yes 11:23:25 If on Metformin: Last Dose? 03/25/2020 11:23:28 Previous problem with sedation/anesthesia? No ? 11:23:31 Snore? No 11:24:19 Sleep apnea? No 11:24:21 Deviated septum? No 11:24:21 Opens mouth fully? Yes 11:24:22 Sticks out tongue? Yes 11:24:26 Airway obstruction? Yes COPD 11:24:31 Dentures? Yes IN TIGHT 11:24:35 Pre procedure: right dorsailis pedis pulse 2+ Normal; easily identifiable; not easily obliterated 11:24:42 Patient pain scale 0/10 ?. 11:24:49 IV patent on arrival in left forearm with 0.9% NaCl at [facility]. 11:24:52 Lab results completed and on chart. 11:24:58 Risk of Mortality: 1.8% 11:25:06 Risk of blood transfusion: 40.8% 11:25:13 Risk of NAVDEEP: 4.0% 11:25:37 Right groin area was prepped with chlora-prep and draped in sterile fashion 11:25:38 Alarms reviewed by R. N. 11:25:38 Sharps counted by scrub and verified by R.N. 11:25:40 Use device set Femoral Dx 11:25:41 ACIST Syringe (04984) opened to sterile field. 11:25:41 Bag Decanter (2002) opened to sterile field. 11:25:42 Medline Cath Pack ([id number]) opened to sterile field. 11:25:43 ACIST Manifold (28969) opened to sterile field. 11:25:43 ACIST Hand Control (85882) opened to sterile field. 11:25:44 EMERALD Guide Wire (204-915) opened to sterile field. 11:25:45 SHEATH 5FR Cedar (QVQ458) opened to sterile field. 11:25:46 DIAGNOSTIC Multipack 5Fr catheter set (LR1423) opened to sterile field. 11:25:47 Tegaderm 4 x 4 (1626W) opened to sterile field. 11::54 Physician arrived : --------ALL STOP TIME OUT------ ::55 Final Timeout: patient, procedure, and site verified with staff and physician. All members of the team are in agreement. 11::56 Right groin site verified by team. 11::59 Fire Safety Assessment: A--An alcohol-based skin anteseptic being used preoperatively., C--Open oxygen or nitrous oxide is being used., D--An ESU, laser, or fiber-optic light is being used. 11:26:03 Physical assessment completed. ASA score P 3 - A patient with severe systemic disease as per Jarocho Aragon MD. 11:26:09 2) 60-89 Mildly reduced kidney function, and other findings (as for stage 1) point to kidney disease. 11:26:10 Fentanyl 50 mcg I.V. was administered by Isabel Leary RN; for sedation; Verbal order read back and verified. 11:26:12 Maximum allowable contrast dose (3.7 X eGFR X 0.75)188 ml. 11:26:14 Versed 2 mg I.V. was administered by Isabel Leary RN; for sedation; Verbal order read back and verified. 11:26:18 Sedation plan: IV Moderate Sedation Medication:Versed, Fentanyl 11:29:52 Procedure started. ::55 Local anesthetic to right femoral artery with Lidocaine 2% by Jarocho Aragon MD.INITIAL ACCESS ONLY 11:30:05 A 5 Fr sheath was inserted into the Right Femoral artery 11::55 Procedure type changed to Cath procedure, Diagnostic procedure, LHC, LHC w/Coronaries w/Grafts 11::59 Zero performed for pressure channel P1 11::09 Fentanyl 50 mcg I.V. was administered by Isabel Leary RN; for sedation; Verbal order read back and verified. 11:31:09 A MULTIPACK JL 4.0 5Fr catheter was advanced over the wire and used for Procedure. 11::31 Versed 1 mg I.V. was administered by Isabel Leary RN; for sedation; Verbal order read back and verified. 11:31:52 LCA angiography performed. 11:33:07 Catheter exchanged over wire. 11:33:11 A MULTIPACK 3DRC 5Fr catheter was advanced over the wire and used for Procedure. 11:33:13 RCA angiography performed. 11:34:21 Lopressor 5 mg I.V. was administered by Isabel Leary RN; Per physician; Verbal order read back and verified. 11:34:25 SVG to Circ angiography performed. 11:34:45 IV Extension Set opened to sterile field. 11:35:02 ENG to LAD angiography performed. 11:36:39 Catheter exchanged over wire. 11:36:58 A MULTIPACK Pigtail 5 Fr catheter was advanced over the wire and used for Procedure. 11:37:14 LV gram done using GAUIAR 11:37:17 Injector settings: Ml/sec: 10, Volume: 20, 11:37:19 LV hemodynamics recorded. 11:37:26 EF : 55 % 11:37:28 Catheter removed. 11:37:31 EXOSEAL 5Fr (EX500) opened to sterile field. 11:37:40 Sheath removed intact; hemostasis achieved with Exoseal to the Right Femoral artery. 11:37:42 Procedure ended.(Physican Out) 11:38:01 Fluoroscopy time 02.10 minutes. 11:38:05 Fluoroscopy dose: 461 mGy 11:38:05 Flurop Dose total: 461 11:38:13 Dose Area Product 74096 mGy/cm. 11:38:18 Contrast amount:Isovue 300 74ml. 11:38:20 Maximum allowable dose exceeded? No. 11:38:21 Sharps counted by scrub and verified by R.N. 11:38:22 Insertion/operative site no bleeding no hematoma. 11:38:24 Post-op/insertion site Right Femoral artery dressed using a 4 x 4 and Tegaderm. 11:38:27 Post right femoral artery:stable, soft, clean and dry 11:38:28 Post Procedure Pulses reassessed and unchanged 11:38:34 Post-procedure physical assessment completed. ASA score P 3 - A patient with severe systemic disease as per Jarocho Aragon MD. 11:39:17 Post procedure rhythm: unchanged. 11:39:41 Estimated blood loss: 5 ml 11:39:42 Post procedure instruction explained to patient.Patient verbalizes understanding. 11:39:43 Patient needs reinforcement of post procedure teaching. 11:39:43 Procedure and supply charges have been captured, reviewed, submitted and are correct. 11:40:07 Procedure Complication : No complications 11:40:09 Vital chart was stopped 11:40:10 [facility] Findings: mild to moderate CAD (<70%) 11:40:13 Operative report dictated upon procedure completion. 11:40:13 See physician's report for complete and final results. 11:40:17 Report given to PCU. 11:40:20 Patient transfered to PCU with Stretcher. 11:40:22 Procedure ended. 11:40:22 Full Disclosure recording stopped 11:40:29 ACC-PCI Only Patient was given prescriptions, or instructed by Jarocho Aragon MD to start/continue the following medications upon discharge: Aspirin, Plavix 11:40:31 End room use (Document Last) Device Usage Item Name Manufacture Quantity Catalog Hospital Part Current Minimal L ot# / Number Charge Number Stock Stock Serial# Code ACIST Acist 1 84589 [id number] 926153 [id number] 20 Syringe Medical (13398) Systems Inc Bag Microtek 1 2001S 296835 27941 291023 5 Decanter Medical Inc. () Medline Medline 1 [id number] 906284 50845 133642 5 Cath Pack ([id number]) ACIST Acist 1 63194 448356 700801 905621 5 Manifold Medical (01170) Systems Inc ACIST Hand Acist 1 83682 356782 902515 347716 5 Control Medical (76203) Systems Inc EMERALD Cardinal 1 502-455 015439 042067 565390 5 Guide Wire Health (502-455) SHEATH 5FR Terumo 1 FJZ465 206502 524188 412799 5 Cedar (MKY260) DIAGNOSTIC Cardinal 1 EE0568 088462 26925 483887 30 Multipack Health 5Fr catheter set (BZ9151) Tegaderm 4 3M 1 1626W 121978 209980 360960 5 x 4 (1626W) MULTIPACK Cardinal 1 332102 5 JL 4.0 5Fr Health catheter MULTIPACK Cardinal 1 103130 5 3DRC 5Fr Health catheter IV Hospira 1 985890 00282 078529 5 Extension Set MULTIPACK Cardinal 1 180693 5 Pigtail 5 Health Fr catheter EXOSEAL 5Fr Cardinal 1 EX500 627724 142418 606582 10 (EX500) Health Signature Audit [place] Stage Time Signature Unsigned Intra-Procedure 03/26/2020 Isabel Leary 11:42:44 AM RN; Haim Desai RT(R); Jarocho Aragon MD [facility] [address] [place] [address]
[~2020-03-25 10:51] MED LIST changes: +COUMADIN1 MG PO; +COUMADIN2 MG PO; +LUNESTA2 M1 PO; +MULTAQ400 MG PO
[2020-03-25 11:19] LABS: BASOPHILS 0.2 % (0-2); EOSINOPHILS 0.8 % (0-7); HEMATOCRIT 27.1 % (42.0-54.0); IMMATURE GRANULOCYTES 0.6 % (0-5); LYMPHOCYTES 13.7 % (15-50); MCH 23.2 pg (26.0-34.0); MCHC 29.5 g/dL (31.0-37.0); MCV 78.6 fL (80.0-100.0); MEAN PLATELET VOLUME 9.5 fL (7.4-10.4); MONOCYTES 7.7 % (2-11); PLATELET COUNT 246 10x3/uL (130-400); RBC 3.45 10x6/uL (4.20-6.10); RDW 18.4 % (11.5-14.5); WBC 6.2 10x3/uL (4.8-10.8)
[2020-03-25 11:20] VITALS: BP 139/60
[2020-03-25 11:31] LABS: CALC OSMOLALITY 277 mosm/kg (275-300); CALCIUM 8.3 mg/dL (8.5-10.1); CARBON DIOXIDE 23.2 mmol/L (21.0-32.0); CHLORIDE - SERUM 102 mmol/L (98-107); CREATININE - SERUM 1.1 mg/dL (0.6-1.3); GLUCOSE 214 mg/dL (74-106); SODIUM 135 mmol/L (136-145); UREA NITROGEN 18 mg/dL (7-18); eGFR NON AFRICAN AMERICAN 68 mL/min (90-120)
[2020-03-25 11:43] LABS: APTT 35.9 SECONDS (22.8-39.4); INR 1.69 (0.85-1.17); PROTIME 19.7 SECONDS (11.6-15.0)
[2020-03-25 11:48] LABS: ALBUMIN 3.2 g/dL (3.4-5.0); ALKALINE PHOSPHATASE 50 U/L (30-120); ALT (SGPT) 28 U/L (10-68); BILIRUBIN - TOTAL 0.26 mg/dL (0.2-1.3); CKMB 2.8 U/L (0.0-3.6); CREATINE KINASE 89 UL (21-232); MAGNESIUM - SERUM 1.6 mg/dL (1.8-2.4); PROTEIN - SERUM 6.4 g/dL (6.4-8.2); TROPONIN-I 0.037 ng/mL (0.000-0.060)
[2020-03-25 14:38] VITALS: BP 132/55; BMI 28.7
[2020-03-25 15:00] VITALS: BP 160/54
[2020-03-25 15:28] LABS: % SATURATION 7 % (15-55); IRON 26 ug/dl (35-150); TOTAL IRON BIND CAPACITY 340 ug/dl (260-445); UNSAT IRON BIND CAPACITY 314 ug/dl (150-375)
[2020-03-25 16:34] LABS: BILIRUBIN NEGATIVE (NEGATIVE); GLUCOSE NEGATIVE (NEGATIVE); KETONE NEGATIVE (NEGATIVE); NITRITE NEGATIVE (NEGATIVE); UROBILINOGEN NORMAL (NORMAL)
[2020-03-25 18:20] LABS: CKMB 9.7 U/L (0.0-3.6); CREATINE KINASE 131 UL (21-232)
--- NOTE | 2020-03-25 19:30 | NUR ---
RECEIVED BEDSIDE REPORT. PATIENT IS ALERT AND ORIENTED, RESTING COMFORTABLY IN BED. RESPIRATIONS ARE EVEN AND UNLABORED. NO S/S OF DISTRESS. NO C/O PAIN. CALL LIGHT WITHIN REACH. WILL CPOC.
[2020-03-25 20:00] VITALS: BP 151/67
[2020-03-26] VITALS: BP 131/44
[2020-03-26 00:41] LABS: CKMB 9.3 U/L (0.0-3.6); CREATINE KINASE 152 UL (21-232)
[2020-03-26 00:44] LABS: TROPONIN-I 2.418 ng/mL (0.000-0.060)
[2020-03-26 04:00] VITALS: BP 154/76
[2020-03-26 07:02] LABS: BASOPHILS 0.4 % (0-2); HEMATOCRIT 29.1 % (42.0-54.0); HEMOGLOBIN 8.6 g/dL (13.5-17.5); IMMATURE GRANULOCYTES 0.4 % (0-5); LYMPHOCYTES 15.5 % (15-50); MCH 23.4 pg (26.0-34.0); MCHC 29.6 g/dL (31.0-37.0); MCV 79.3 fL (80.0-100.0); MEAN PLATELET VOLUME 9.5 fL (7.4-10.4); NEUTROPHILS 69.7 % (40-80); PLATELET COUNT 268 10x3/uL (130-400); RBC 3.67 10x6/uL (4.20-6.10); RDW 18.9 % (11.5-14.5); WBC 5.5 10x3/uL (4.8-10.8)
[2020-03-26 07:17] LABS: INR 1.54 (0.85-1.17); PROTIME 18.3 SECONDS (11.6-15.0)
[2020-03-26 07:42] LABS: ALBUMIN 3.4 g/dL (3.4-5.0); ALKALINE PHOSPHATASE 54 U/L (30-120); ALT (SGPT) 27 U/L (10-68); BILIRUBIN - TOTAL 0.39 mg/dL (0.2-1.3); CALCIUM 8.8 mg/dL (8.5-10.1); CHLORIDE - SERUM 103 mmol/L (98-107); CKMB 7.6 U/L (0.0-3.6); CREATINE KINASE 122 UL (21-232); CREATININE - SERUM 1.1 mg/dL (0.6-1.3); PROTEIN - SERUM 6.7 g/dL (6.4-8.2); SODIUM 138 mmol/L (136-145); UREA NITROGEN 14 mg/dL (7-18); eGFR NON AFRICAN AMERICAN 68 mL/min (90-120)
[2020-03-26 07:44] LABS: CALC OSMOLALITY 278 mosm/kg (275-300); GLUCOSE 127 mg/dL (74-106); TROPONIN-I 1.368 ng/mL (0.000-0.060)
[2020-03-26 09:04] VITALS: BP 154/68
[2020-03-26 10:11] LABS: CHOL - HDL RATIO 4.2 ratio (2.3-4.9); LDL-HDL RATIO 1.9 ratio (1.5-3.5)
--- NOTE | 2020-03-26 11:05 | NUR ---
PRE-OPS GIVEN. TO GAS TURBINE ASSEMBLER BY BED.
--- NOTE | 2020-03-26 12:03 | NUR ---
BACK FROM CARE ASST. VS WNL. RIGHT GROIN STABLE WITHOUT BLEEDING OR HEMATOMA NOTED. WILL MONITOR.
[2020-03-26 13:09] VITALS: Ht 177.8 cm; Wt 90.7 kg
[2020-03-26 13:29] VITALS: BP 134/64
--- NOTE | 2020-03-26 13:42 | NUR ---
BED REST UP. GROIN STABLE.
[2020-03-26 17:03] VITALS: BP 144/61
[2020-03-26 20:00] VITALS: BP 124/75
[2020-03-27] VITALS: BP 126/63
--- NOTE | 2020-03-27 01:00 | NUR ---
NOTIFIED CARDIOLOGY OF PATIENT INCREASED HR AND CARDIAC RHYTHM. PATIENT HR ANYWHERE FROM 112 TO 153 UNCONTROLLED AFIB. ORDERS GIVEN TO START PATIENT ON A CARDIZEM DRIP AT 10MG/HR.
[2020-03-27 04:00] VITALS: BP 112/59
[2020-03-27 05:56] LABS: BASOPHILS 0.3 % (0-2); EOSINOPHILS 1.4 % (0-7); HEMATOCRIT 31.3 % (42.0-54.0); HEMOGLOBIN 9.5 g/dL (13.5-17.5); IMMATURE GRANULOCYTES 0.5 % (0-5); LYMPHOCYTES 22.8 % (15-50); MCH 23.8 pg (26.0-34.0); MCHC 30.4 g/dL (31.0-37.0); MCV 78.4 fL (80.0-100.0); MEAN PLATELET VOLUME 9.6 fL (7.4-10.4); MONOCYTES 10.1 % (2-11); NEUTROPHILS 64.9 % (40-80); PLATELET COUNT 314 10x3/uL (130-400); RBC 3.99 10x6/uL (4.20-6.10); WBC 6.5 10x3/uL (4.8-10.8)
[2020-03-27 06:40] LABS: ALBUMIN 3.5 g/dL (3.4-5.0); BILIRUBIN - TOTAL 0.4 mg/dL (0.2-1.3); CALCIUM 8.7 mg/dL (8.5-10.1); CARBON DIOXIDE 25.1 mmol/L (21.0-32.0); CREATININE - SERUM 1.2 mg/dL (0.6-1.3); POTASSIUM - SERUM 4.1 mmol/L (3.5-5.1); PROTEIN - SERUM 6.7 g/dL (6.4-8.2)
[2020-03-27 08:01] VITALS: BP 116/47
[2020-03-27 12:13] VITALS: BP 126/66
--- NOTE | 2020-03-27 13:52 | NUR ---
TELEMETRY CAF HR 78. CRDIZEM GTT DECREASED TO 5MG/HR AND DIGOXIN 0.5MG GIVEN IVP PER DR. LUND. WILL CONT. TO MONITOR.
--- NOTE | 2020-03-27 15:04 | NUR ---
TELEMETRY SR 88. WILL CONT. PLAN OF CARE.
[2020-03-27 15:10] VITALS: BP 143/55
--- NOTE | 2020-03-27 15:12 | NUR ---
UP AMBULATING HALLWAY. GAIT STEADY.
--- NOTE | 2020-03-27 16:44 | NUR ---
IV RESTARTED TO RIGHT HAND WITH 22 GAUGE CATH X 1 STICK AND FLUSHED WITH NS. LINE IS PATENT.
--- NOTE | 2020-03-27 19:35 | NUR ---
RECEIVED BEDSIDE REPORT. PATIENT IS ALERT AND ORIENTED, RESTING COMFORTABLY IN BED. RESPIRATIONS ARE EVEN AND UNLABORED. NO S/S OF DISTRESS. NO C/O PAIN. DENIES NEEDS. CALL LIGHT WITHIN REACH. WILL CPOC.
[2020-03-27 20:00] VITALS: BP 139/56
[2020-03-28 04:00] VITALS: BP 112/46
[2020-03-28 06:24] LABS: BASOPHILS 0.4 % (0-2); HEMATOCRIT 27.6 % (42.0-54.0); HEMOGLOBIN 8.3 g/dL (13.5-17.5); IMMATURE GRANULOCYTES 0.2 % (0-5); LYMPHOCYTES 20.9 % (15-50); MCH 23.7 pg (26.0-34.0); MCHC 30.1 g/dL (31.0-37.0); MCV 78.9 fL (80.0-100.0); MEAN PLATELET VOLUME 9.1 fL (7.4-10.4); MONOCYTES 12.9 % (2-11); NEUTROPHILS 63.6 % (40-80); RDW 19.2 % (11.5-14.5); WBC 5.4 10x3/uL (4.8-10.8)
[2020-03-28 06:41] LABS: PLATELET COUNT 243 10x3/uL (130-400)
[2020-03-28 07:07] LABS: ALBUMIN 3.2 g/dL (3.4-5.0); ALKALINE PHOSPHATASE 52 U/L (30-120); ALT (SGPT) 25 U/L (10-68); BILIRUBIN - TOTAL 0.33 mg/dL (0.2-1.3); CALC OSMOLALITY 282 mosm/kg (275-300); CALCIUM 8.1 mg/dL (8.5-10.1); CARBON DIOXIDE 25.5 mmol/L (21.0-32.0); CHLORIDE - SERUM 106 mmol/L (98-107); GLUCOSE 114 mg/dL (74-106); POTASSIUM - SERUM 4.3 mmol/L (3.5-5.1); SODIUM 141 mmol/L (136-145); UREA NITROGEN 14 mg/dL (7-18); eGFR NON AFRICAN AMERICAN 76 mL/min (90-120)
--- NOTE | 2020-03-28 07:13 | NUR ---
PT LAYING SUPINE, RR EVEN AND UNLABORED. DENIES NEEDS OR PAIN AT THIS TIME. CALL LIGHT WITHIN REACH. BED IN LOWEST POSITION. WILL CONTINUE TO MONITOR.
[2020-03-28 09:11] VITALS: BP 120/66
--- NOTE | 2020-03-28 11:30 | CN ---
PATIENT NAME:ELIUD RIVERA MEDICAL RECORD: [id number] : 37 LOCATION:[facility] [address] ADMIT DATE: 03/25/20 ACCOUNT: [id number] CONSULTING PHYSICIAN: LISETTE LUND MD REFERRING PHYSICIAN: LISETTE LAKHANI MD DATE OF CONSULTATION: 03/26/2020 HISTORY OF PRESENT ILLNESS: An 84-year-old gentleman with a known history of coronary artery disease, status post intervention in the past, admitted with chest and abdominal pain, onset approximately 2 days ago. She has had a history of prostate carcinoma, status post radiation therapy back in December of this year as well, chronically anemic as well as intermittent atrial fibrillation. Kind of a general downward course of fatigue and tiredness prior to this. This was first angina in some time, so she was ruled in for NSTEMI. PAST MEDICAL HISTORY: Includes: 1. History of paroxysmal atrial fibrillation. 2. Coronary artery disease as described above. 3. Hypertension. 4. Prostate carcinoma. 5. Diabetes mellitus. 6. Dyslipidemia. MEDICATIONS: Include metformin 500 mg b.i.d., Pepcid 20 b.i.d., Lunesta 3 mg at bedtime p.r.n., aspirin 81 q. day, losartan 50 q. day, warfarin 2 mg p.o. q. day, Plavix 75 q. day. ALLERGIES: STEVE INHIBITORS CAUSE A COUGH, SULFA, STATINS, AMIODARONE, AND CARDURA HAS CAUSED ORTHOSTASIS. SOCIAL HISTORY: Nonsmoker, nondrinker. Has been able to keep up with his ADLs so far. Does have home health. REVIEW OF SYSTEMS: The patient reports easy bruising but reports no swollen glands. The patient reports no fever, no night sweats, no significant weight gain, no significant weight loss. No significant exercise tolerance. The patient reports no dry eyes, no irritation, no vision change. Patient reports no difficulty hearing and no ear pain. Patient reports no frequent nose bleeds or nose and sinus problems. Patient reports no arm pain on exertion. No shortness of breath while lying down. No history of heart murmur. Patient reports no cough, no wheezing or coughing up blood. Patient reports abdominal pain. No vomiting. Normal appetite. No diarrhea and not vomiting blood. No nausea and no constipation. Patient reports no incontinence. No difficulty urinating. No hematuria. No increased frequency. Patient reports no muscle aches. No weakness, no arthralgias, no back pain. No swelling of the extremities. Patient reports no abnormal mole, no jaundice, no rashes. Reports no loss of consciousness. No weakness and no numbness. No seizures, dizziness, or headaches. The patient reports no depression, no sleep disturbance, feeling safe in a relationship and no alcohol abuse. Patient reports no fatigue. Reports no runny nose or sinus pressure. No itching, no hives, and no frequent sneezing. PHYSICAL EXAMINATION: GENERAL: In no acute distress, appears stated age. VITAL SIGNS: 154/68, pulse 70 and regular. CONSULT REPORT [id number] ELIUD RIVERA HEENT: Normocephalic, atraumatic. NECK: No bruits noted. HEART: Regular. LUNGS: Davis are clear. ABDOMEN: Soft, nontender. EXTREMITIES: Pulses 2+ with no edema. DIAGNOSTIC DATA: EKG shows atrial fib and also ST-T changes. IMPRESSION: NSTEMI. This may be type 2 versus type 1. However, given his known disease, chronic anemia, rule out coronary artery disease. NTS:[id number] Voice Confirmation ID: [id number] DOCUMENT ID: [id number] LISETTE LUND MD at 1130 CC: [id number] DICTATION DATE: 03/26/20 111 ACTIVITY THERAPY SPECIALIST: 03/26/20 2324 ADM IN [place] [address] [place] [address]
--- NOTE | 2020-03-28 11:30 | OP ---
PATIENT NAME: ELIUD RIVERA MEDICAL RECORD: [id number] :37 LOCATION:D.M2 D.2118 ADMISSION DATE:03/25/20 SURGEON: LISETTE LUND MD DATE OF OPERATION: 03/26/2020 PROCEDURE: Left heart catheterization and right femoral artery approach. CATHETERS: A 5-Citizen Of [place] sheath, 5/4 left and right [place], 5/4 pig. The procedure was well tolerated. The patient returned to the couch. Sheath removed. ExoSeal device placed. FINDINGS: Left ventriculography in 30-degree AGUIAR view shows anterior apical hypokinesis. Overall, LV function appears to be preserved at 50% or better. CORONARY ANATOMY: LEFT MAIN: Fills for a very short period of time. LAD: Totally occluded LAD. CIRCUMFLEX: Likewise totally occluded. RIGHT CORONARY ARTERY: Shows luminal irregularities throughout its course with no flow obstructive stenosis, has a widely patent stent. BYPASS GRAFTS: Saphenous vein graft to circumflex OM system. This is a large graft and fills the entire circumflex system retrograde. This is free of disease. ENG to LAD is widely patent throughout its course. Fills the diagonal system in a retrograde fashion. IMPRESSION: Patent saphenous graft to this OM, patent ENG to LAD, both filling the entire tree nicely retrograde; suspect type 2 NSTEMI secondary to anemia and underlying atrial fib. No role for intervention. TRANSINT:[id number] Voice Confirmation ID: [id number] DOCUMENT ID: [id number] LISETTE LUND MD at 1130 CC: [id number] DICTATION DATE: 03/26/20 1142 DEHYDRATOR TENDER: 03/27/20 0007 ADM IN [facility] [address] [place] [address]
[2020-03-28 12:04] VITALS: BP 143/56
--- NOTE | 2020-03-28 12:46 | NUR ---
Nutrition Follow-up: Waiting on breakfast tray at time of visit this AM. Pt reports good appetite. Diet: Diabetic Wt: 200# (03/26) Last BM: 03/27 per chart Labs noted: Glu 114, Ca 8.1, Alb 3.2 Meds noted: Colace, Pepcid, Humulin -Encourage PO intake and honor food preferences within diet restrictions. -Monitor wt. -RD following.
--- NOTE | 2020-03-28 16:31 | NUR ---
I have reviewed this patient and I concur with the Shift Assessment completed by the Licensed Practical Nurse today this shift.
[2020-03-28 16:57] VITALS: BP 148/66
[2020-03-28 20:30] VITALS: BP 153/53
--- NOTE | 2020-03-28 23:01 | NUR ---
INITIAL ROUNDS COMPLETED AT 1920 HRS. PT DENIED ANY DISCOMFORT. ASSESSMENT COMPLETED AT [address] PER CM HR 105. ALERT AND ORIENTED TO PERSON,PLACE AND TIME. JEFFREY. LUNGS DIMINISHED IN BASES BILAT. IV TO L HAND SL. ABD DISTENED WITH HYOPERACTIVE BS NOTED. BM FSBS 179. 2 UNITS REG INSULIN GIVEN SUB-Q PER S/S. PM MEDS GIVEN. PM SNACK SERVED. PT CURRENTLY RESTING WITH EYES CLOSED. RESP EVEN AND REGULAR. SR UP X1,CALL LIGHT WITHIN REACH.
[2020-03-29] VITALS (7 sets, daily range): BP systolic 111–181; BP diastolic 52–90
--- NOTE | 2020-03-29 00:40 | NUR ---
PT RESTING WITH EYES CLOSED. RESP EVEN AND REGULAR. SR UP X1, CALL LIGHT WITHIN REACH.
--- NOTE | 2020-03-29 02:18 | NUR ---
PT RESTING WITH EYES CLOSED. RESP EVEN AND REGULAR. SR UP X1, CALL LIGHT WITHIN REACH.
--- NOTE | 2020-03-29 03:41 | NUR ---
PT RESTING WITH EYES CLOSED. RESP EVEN AND REGULAR. SR UP X1, CALL LIGHT WITHIN REACH.
[2020-03-29 06:36] LABS: BASOPHILS 0.2 % (0-2); EOSINOPHILS 2.2 % (0-7); HEMATOCRIT 29.7 % (42.0-54.0); HEMOGLOBIN 8.7 g/dL (13.5-17.5); IMMATURE GRANULOCYTES 0.7 % (0-5); LYMPHOCYTES 22.9 % (15-50); MCH 23.6 pg (26.0-34.0); MCHC 29.3 g/dL (31.0-37.0); MCV 80.5 fL (80.0-100.0); MEAN PLATELET VOLUME 9.6 fL (7.4-10.4); MONOCYTES 11.6 % (2-11); NEUTROPHILS 62.4 % (40-80); PLATELET COUNT 268 10x3/uL (130-400); RBC 3.69 10x6/uL (4.20-6.10); RDW 19.7 % (11.5-14.5); WBC 5.9 10x3/uL (4.8-10.8)
--- NOTE | 2020-03-29 06:40 | NUR ---
VSS THROUGHOUT NIGHT. SR PER CM. AM FSBS 120. NO COVERAGE NECCESSARY. CONTINUE TO HAVE C/O CONSTIPATION. NEEDS MET; WILL CONTINUE TO MONITOR.
[2020-03-29 07:01] LABS: ALBUMIN 3.3 g/dL (3.4-5.0); ALKALINE PHOSPHATASE 57 U/L (30-120); ALT (SGPT) 22 U/L (10-68); BILIRUBIN - TOTAL 0.29 mg/dL (0.2-1.3); CALC OSMOLALITY 275 mosm/kg (275-300); CALCIUM 7.9 mg/dL (8.5-10.1); CARBON DIOXIDE 25.1 mmol/L (21.0-32.0); CHLORIDE - SERUM 104 mmol/L (98-107); GLUCOSE 107 mg/dL (74-106); POTASSIUM - SERUM 4.1 mmol/L (3.5-5.1); PROTEIN - SERUM 6.4 g/dL (6.4-8.2); SODIUM 138 mmol/L (136-145); UREA NITROGEN 12 mg/dL (7-18); eGFR NON AFRICAN AMERICAN 76 mL/min (90-120)
--- NOTE | 2020-03-29 07:15 | NUR ---
RECEIVED PT IN BED EYES CLOSED RESP UNLABORED SKIN W/D COLOR WNL NAD NOTED
[2020-03-29] MEDS ORDERED: LANOXIN125 MCG PO (11:05)
[2020-03-29 12:26] LABS: INR 1.16 (0.85-1.17); PROTIME 14.8 SECONDS (11.6-15.0)
--- NOTE | 2020-03-29 13:49 | NUR ---
UNABLE TO CLARIFY MEDICATION DOSES [facility] CLOSE PATIENT'S MED LIST IS ACCURATE WITH HOME MED LIST IN THE COMPUTER
--- NOTE | 2020-03-29 15:55 | MORECARE ---
CASE MANAGEMENT DISCHARGE SUMMARY PATIENT: ELIUD RIVERA UNIT: [id number] ADM DATE: 03/25/20 AGE: 84 : 36 SEX: M ROOM/BED: D.2118 AUTHOR: CISCO LEDEZMA PHYSICIAN: REFERRING PHYSICIAN: LISETTE LAKHANI MD DATE OF SERVICE: 03/29/20 Discharge Plan Patient Name: ELIUD RIVERA Facility: [facility]:[place] : 1935 Planned Disposition: Home Anticipated Discharge Date: Discharge Date: Expected LOS: Initial Reviewer: [email or web address] Initial Review Date: 03/25/2020 Generated: 03/29/20 4:55 pm DCPIA - Discharge Planning Initial Assessment Updated by [email or web address]: Anabelle Etienne on 03/29/20 3:50 pm * Is the patient Alert and Oriented? Yes * How many steps to enter\exit or inside your home? * PCP [facility] or [facility] * Pharmacy [facility] [place] * Preadmission Environment Home Alone * ADLs Independent * Equipment Walker * List name and contact numbers for known caregivers / representatives who currently or will assist patient after discharge: NATA RIVERA - [phone] * Verbal permission to speak to the caregivers and representatives has been obtained from the patient. Yes * Community resources currently utilized None * Additional services required to return to the preadmission environment? No * Can the patient safely return to the preadmission environment? Yes * Has this patient been hospitalized within the prior 30 days at any hospital? No Patient Name: ELIUD RIVERA Page [id number] at 1555 All edits/amendments must be made on the electronic document DICTATION DATE: 03/29/20 1555 CHAINMAN: MARY 03/29/20 1555 RPT#: [id number] DC DATE: STATUS: ADM IN [facility] [address] [place] [address] END OF REPORT
--- NOTE | 2020-03-29 16:27 | MORECARE ---
CASE MANAGEMENT DISCHARGE SUMMARY PATIENT: ELIUD RIVERA UNIT: [id number] ADM DATE: 03/25/20 AGE: 84 : 36 SEX: M ROOM/BED: D.9756 AUTHOR: BRISA,DOC PHYSICIAN: REFERRING PHYSICIAN: LISETTE LAKHANI MD DATE OF SERVICE: 03/29/20 Discharge Plan Patient Name: ELIUD RIVERA Facility: [facility]:[place] : 1935 Planned Disposition: Home Anticipated Discharge Date: Discharge Date: Expected LOS: Initial Reviewer: [email or web address] Initial Review Date: 03/25/2020 Generated: 03/29/20 5:27 pm Comments DCP- Discharge Planning Updated by [email or web address]: Anabelle Etienne on 03/29/20 3:[address] Patient Name: ELIUD RIVERA Admission Status: ER Accout number: [id number] Admission Date: 03-25-2020 : 1935 Admission Diagnosis:ANEMIA, UNSPECIFIED Attending: KIANNA Current LOS: 4 Anticipated DC Date: Planned Disposition: Home Primary Insurance: MEDICARE A & B Discharge Planning Comments: CM met with patient to complete initial dc planning assessment. CM educated patient on the CM role and verbal consent given by patient to complete assessment. Patient lives at home alone. Patient is independent. At discharge patient plans to return home and feels this is a safe discharge. CM discussed availability of home health, rehab services, and medical equipment. Patient states that he has had them to come out but they told him since he isn't home bound they could not accept him. Patient will have family to transport home. Patient denied known discharge needs at this time. Patient states that he is very dizzy this am and doesn't feel he needs to discharge today. CM relayed this information to nursing. D/C IMM signed 03/29/20 @ 1149. CM will continue to follow and will assist as needed with dc plans/needs. Lab Assistant: Anabelle Etienne DCPIA - Discharge Planning Initial Assessment Updated by [email or web address]: Anabelle Etienne on 03/29/20 3:50 pm * Is the patient Alert and Oriented? Yes * How many steps to enter\exit or inside your home? * PCP [facility] or [facility] * [facility] [place] * Preadmission Environment Home Alone * ADLs Independent * Equipment Walker * List name and contact numbers for known caregivers / representatives who currently or will assist patient after discharge: NATA RIVERA - [phone] * Verbal permission to speak to the caregivers and representatives has been obtained from the patient. Yes * Community resources currently utilized None * Additional services required to return to the preadmission environment? No * Can the patient safely return to the preadmission environment? Yes * Has this patient been hospitalized within the prior 30 days at any hospital? No Coverage Notice Reviewer: [email or web address] Rosalinda Etienne Notice Issued Date-Time: 03/29/2020 11:49 Notice Type: IM Discharge Notice Notice Delivered To: Patient Relationship to Patient: Self Stadium Attendant Name: Delivery Method: HAND - Hand Delivered Mindi Days: Prior Verbal Notification: Recipient Understood Notice: Yes Recipient Signature: Yes Med Rec Note Co-signed by Attending: Coverage Notice Comment: Last DP export: 03/29/20 2:55 pm Patient Name: ELIUD RIVERA Page [id number] at 1627 All edits/amendments must be made on the electronic document DICTATION DATE: 03/29/201626 FIREFIGHTER TYPE ONE: MARY 03/29/201626 RPT#: [id number] DC DATE: STATUS: ADM IN [facility] [address] [place] [address] END OF REPORT
--- NOTE | 2020-03-29 19:42 | NUR ---
INITIAL ROUNDS COMPLETED AT 1900 HRS. HAS C/O DIZZINESS S/P SALINE NASAL SPRAY USAGE. VSS. CAF PER CM HR 75. ALERT AND ORIENTED TO PERSON,PLACE AND TIME. JEFFREY. LUNGS DIMINISHED IN BASES BILAT. ABD SOFT WITH ACTIVE BS NOTED. RED AND SWOLLEN AREA TO LAC NOTED. IV TO L HAND SL. CALL LIGHT WITHIN REACH.
--- NOTE | 2020-03-29 21:36 | NUR ---
PM FSBS 140. NO COVERAGE NEEDED. PM MEDS GIVEN. PT VALERIEENLTY WATCHING TV. CALL LIGHT WITHIN REACH.
--- NOTE | 2020-03-29 22:13 | NUR ---
AMBULATING HALLWAYS. GAIT EVEN AND STEADY. SR WITH PVC'S HR 72.
--- NOTE | 2020-03-29 23:31 | NUR ---
VSS. PT DENIES ANY DISCOMFORT. CALL LIGHT WITHIN REACH.
--- NOTE | 2020-03-30 02:12 | NUR ---
PT RESTING WITH EYES CLOSED. RESP EVEN AND REGULAR. CALL LIGHT WITHIN REACH.
[2020-03-30 03:23] VITALS: BP 138/57
--- NOTE | 2020-03-30 03:33 | NUR ---
VSS. SR WITH PVC'S PER CM HR 68. PT DENIES ANY DISCOMFORT. CALL LIGHT WITHIN REACH.
--- NOTE | 2020-03-30 05:57 | NUR ---
VSS THROUGHOUT NIGHT. SR WITH PVC'S PER CM . PT DENIED ANY DISCOMFORT. NEEDS MET; WILL CONTINUE TO MONITOR.
[2020-03-30 06:34] LABS: BASOPHILS 0.3 % (0-2); EOSINOPHILS 2.6 % (0-7); HEMATOCRIT 30.9 % (42.0-54.0); HEMOGLOBIN 9.2 g/dL (13.5-17.5); IMMATURE GRANULOCYTES 0.6 % (0-5); LYMPHOCYTES 21.9 % (15-50); MCH 23.8 pg (26.0-34.0); MCHC 29.8 g/dL (31.0-37.0); MCV 80.1 fL (80.0-100.0); MEAN PLATELET VOLUME 9.8 fL (7.4-10.4); MONOCYTES 12.2 % (2-11); NEUTROPHILS 62.4 % (40-80); PLATELET COUNT 280 10x3/uL (130-400); RBC 3.86 10x6/uL (4.20-6.10); RDW 20.2 % (11.5-14.5); WBC 6.2 10x3/uL (4.8-10.8)
--- NOTE | 2020-03-30 07:00 | NUR ---
RECEIVED REPORT. ASSUMED CARE OF PATIENT. CALL LIGHT WITHIN REACH. PATIENT RESTING IN BED WITH EYES OPEN. PATIENT STATES TELEMETRY PAD HAS CAME OFF AND THAT HE WILL NOT TAKE THAT DIGOXIN PILL IF IT IS SCHEDULED TO BE ADMINISTERED TODAY BECAUSE HE DOESN'T LIKE THE WAY IT MAKES HIM FEEL. WHITE BOARD UPDATED, BEDSIDE SHIFT REPORT COMPLETED. NO DISTRESS.
[2020-03-30 07:05] LABS: ALBUMIN 3.4 g/dL (3.4-5.0); ANION GAP 12.4 mmol/L (8-16); BILIRUBIN - TOTAL 0.35 mg/dL (0.2-1.3); CALCIUM 8.1 mg/dL (8.5-10.1); CARBON DIOXIDE 25.4 mmol/L (21.0-32.0); CREATININE - SERUM 1.1 mg/dL (0.6-1.3); POTASSIUM - SERUM 3.8 mmol/L (3.5-5.1); PROTEIN - SERUM 6.9 g/dL (6.4-8.2)
[2020-03-30 10:36] VITALS: BP 155/50
--- NOTE | 2020-03-30 11:20 | NUR ---
FSBS 234. 4 UNITS HUMULIN ADMINISTERED PER SLIDING SCALE.
--- NOTE | 2020-03-30 11:38 | NUR ---
PATIENT COMPLAINING ABOUT HIS SINUSES BUT REFUSES TO USE SALINE NASAL SPRAY. PATIENT STATES WHEN HE LEAVES HE IS GOING TO THE WALK IN CLINIC TO GET A STERIOD SHOT. EDUCATION PROVIDED.
--- NOTE | 2020-03-30 12:45 | NUR ---
22 GAUGE IV REMOVED FROM LEFT HAND. CATHETER TIP INTACT. NO BLEEDING FROM SITE. 2X2 GAUZE APPLIED AND SECURED WITH BANDAID. TOLERATED IV REMOVAL WELL.
--- NOTE | 2020-03-30 12:50 | NUR ---
DISCHARGE INSTRUCTIONS PROVIDED. PATIENT STATES HE WILL NOT GO GET THE COUMADIN FROM THE PHARMACY BECAUSE THE OTHER DOCTOR AT [facility] TRIED THAT MEDICATION ON HIM AND HE DIDNT LIKE THE WAY IT MADE HIM FEEL. HE STATES HE TOLD THE MDs HERE AND HE REFUSES TO TAKE IT. ALL OTHER INSTRUCTIONS VERBALIZED BY TEACH BACK FROM THE PATIENT.
--- NOTE | 2020-03-30 13:07 | NUR ---
PATIENT LEFT UNIT AT THIS TIME VIA WHEELCHAIR WITH ALL PERSONAL BELONGINGS. PATIENT DISCHARGED TO HOME IN NO ACUTE DISTRESS.
--- NOTE | 2020-04-01 19:16 | MORECARE ---
CASE MANAGEMENT DISCHARGE SUMMARY PATIENT: ELIUD RIVERA UNIT: [id number] ADM DATE: 03/25/20 AGE: 84 : 36 SEX: M ROOM/BED: D.1219 AUTHOR: BRISA,DOC PHYSICIAN: REFERRING PHYSICIAN: LISETTE LAKHANI MD DATE OF SERVICE: 04/01/20 Discharge Plan Patient Name: ELIUD RIVERA Facility: [facility]:[place] : 1935 Planned Disposition: Home Anticipated Discharge Date: Discharge Date: 03/30/2020 Expected LOS: Initial Reviewer: [email or web address] Initial Review Date: 03/25/2020 Generated: 04/01/20 8:16 pm Comments DCP- Discharge Planning Updated by [email or web address]: Anabelle Etienne on 03/29/20 3:[address] Patient Name: ELIUD RIVERA Admission Status: ER Accout number: [id number] Admission Date: 03-25-2020 : 1935 Admission Diagnosis:ANEMIA, UNSPECIFIED Attending: KIANNA Current LOS: 4 Anticipated DC Date: Planned Disposition: Home Primary Insurance: MEDICARE A & B Discharge Planning Comments: CM met with patient to complete initial dc planning assessment. CM educated patient on the CM role and verbal consent given by patient to complete assessment. Patient lives at home alone. Patient is independent. At discharge patient plans to return home and feels this is a safe discharge. CM discussed availability of home health, rehab services, and medical equipment. Patient states that he has had them to come out but they told him since he isn't home bound they could not accept him. Patient will have family to transport home. Patient denied known discharge needs at this time. Patient states that he is very dizzy this am and doesn't feel he needs to discharge today. CM relayed this information to nursing. D/C IMM signed 03/29/20 @ 1149. CM will continue to follow and will assist as needed with dc plans/needs. Model And Pattern Supervisor: Anabelle Etienne DCPIA - Discharge Planning Initial Assessment Updated by [email or web address]: Anabelle Etienne on 03/29/20 3:50 pm * Is the patient Alert and Oriented? Yes * How many steps to enter\exit or inside your home? * PCP [facility] or [facility] * [facility] [place] * Preadmission Environment Home Alone * ADLs Independent * Equipment Walker * List name and contact numbers for known caregivers / representatives who currently or will assist patient after discharge: NATA RIVERA - [phone] * Verbal permission to speak to the caregivers and representatives has been obtained from the patient. Yes * Community resources currently utilized None * Additional services required to return to the preadmission environment? No * Can the patient safely return to the preadmission environment? Yes * Has this patient been hospitalized within the prior 30 days at any hospital? No Coverage Notice Reviewer: [id number] Rosalinda Etienne Notice Issued Date-Time: 03/29/2020 11:49 Notice Type: IM Discharge Notice Notice Delivered To: Patient Relationship to Patient: Self Plate Gauger Name: Delivery Method: HAND - Hand Delivered Mindi Days: Prior Verbal Notification: Recipient Understood Notice: Yes Recipient Signature: Yes Med Rec Note Co-signed by Attending: Coverage Notice Comment: Last DP export: 03/29/20 3:27 pm Patient Name: ELIUD RIVERA Page [id number] at 1916 All edits/amendments must be made on the electronic document DICTATION DATE: 04/01/201915 AVIONICS MECHANIC: MARY 04/01/201915 RPT#: [id number] DC DATE:03/30/20 STATUS: DIS IN [facility] [address] [place] [address] END OF REPORT
== END 2020-03-30 13:15 | disposition home or self-care (01) | DRG 811 ==
LOC: D.ER 10:51 → D.M2 12:33
PROVIDERS: Family Medicine; Internal Medicine Cardiovascular Disease; Internal Medicine Interventional Cardiology; ADMIT Family Medicine; ATTEND Family Medicine
PROC: B2151ZZ Fluoroscopy of Left Heart using Low Osmolar Contrast (ICD-10-PCS; 2020-03-26)
PROC: B2181ZZ Fluoroscopy of Left Internal Mammary Bypass Graft using Low Osmolar Contrast (ICD-10-PCS; 2020-03-26)
PROC: 4A023N7 Measurement of Cardiac Sampling and Pressure, Left Heart, Percutaneous Approach (ICD-10-PCS; 2020-03-26)
PROC: B2131ZZ Fluoroscopy of Multiple Coronary Artery Bypass Grafts using Low Osmolar Contrast (ICD-10-PCS; principal; 2020-03-26 11:00)
DX: D64.9 Anemia, unspecified (principal); I21.A1 Myocardial infarction type 2; K56.7 Ileus, unspecified; I48.20 Chronic atrial fibrillation, unspecified; I50.20 Unspecified systolic (congestive) heart failure; R51 Headache; D50.9 Iron deficiency anemia, unspecified; Z79.01 Long term (current) use of anticoagulants; I11.0 Hypertensive heart disease with heart failure; E11.9 Type 2 diabetes mellitus without complications; I25.10 Atherosclerotic heart disease of native coronary artery without angina pectoris; J44.9 Chronic obstructive pulmonary disease, unspecified; Z95.0 Presence of cardiac pacemaker; R42 Dizziness and giddiness; Z86.73 Personal history of transient ischemic attack (TIA), and cerebral infarction without residual deficits

== ENCOUNTER → 2021-01-09 09:15 | Outpatient (CLI) | payer MEDICARE, MEDICAID ==
[2020-03-26 13:09] VITALS: BMI 28.6
[~2021-01-09 09:15] MED LIST changes: +LANOXIN125 MCG PO
== END | disposition home or self-care (01) ==
LOC: D.LAB 08:00 → D.HCCECHO 09:30
PROVIDERS: ATTEND Internal Medicine Interventional Cardiology
DX: I25.10 Atherosclerotic heart disease of native coronary artery without angina pectoris (principal); I65.29 Occlusion and stenosis of unspecified carotid artery